=== PATIENT | male | born 1950 | race Hispanic/Latino ===

== ENCOUNTER 2019-02-04 17:01 | Emergency (ER) | payer OTHER ==
--- NOTE | 2019-02-04 18:07 | RAD REPORT ---
EXAM DESCRIPTION: CT - CTHCSPWOC - 02/04/2019 5:54 pm CLINICAL HISTORY: Trauma, head and neck injury. PAIN COMPARISON: Head Brain Wo Cont dated 06/13/2016 TECHNIQUE: Axial 5 mm thick images of the head were obtained. Axial 2 mm thick images of the cervical spine were obtained with sagittal and coronal reconstruction images generated and reviewed. All CT scans are performed using dose optimization technique as appropriate and may include automated exposure control or mA/KV adjustment according to patient size. FINDINGS: CT HEAD WITHOUT CONTRAST: No acute hemorrhage, hydrocephalus or extra-axial collection is identified.Mild generalized brain atr ophy is present with mild periventricular and deep white matter chronic microvascular ischemic change s.No areas of brain edema or midline shift. 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 The paranasal sinuses and mastoids demonstrate mild thickening of both maxillary antra.The paranasal sinuses and mastoids are otherwise clear.The calvarium is intact. CT CERVICAL SPINE WITHOUT CONTRAST: No fracture or subluxation.A left carotid stent is noted.No prevertebral soft tissues swelling is bharat ntified. IMPRESSION: No acute intracranial or cervical spine findings.
--- NOTE | 2019-02-04 18:49 | RAD REPORT ---
EXAM DESCRIPTION: RAD - Thoracic Spine Ap/Lat - 02/04/2019 6:44 pm CLINICAL HISTORY: fall. back pain Radiculopathy COMPARISON: No comparisons FINDINGS: The thoracic spine vertebral body heights and disc spaces are largely maintained. No acute compression fracture. No significant malalignment. Multilevel bridging anterior osteophytes suggesti ve of underlying DISH. IMPRESSION: No acute abnormality suspected.
[2019-02-04] MEDS ORDERED: ACETAMINOPHEN 500 MG TAB ONE (18:53)
--- NOTE | 2019-02-04 19:21 | ER ---
Nurse's Notes [facility] Name: Joey Pringle Age: 68 yrs Sex: Male : 1950 Arrival Date: 02/04/2019 Time: 17:04 Bed 20 Private MD: Diagnosis: fall;head injury;scalp contusion;neck sprain;thoracic back sprain Presentation: 02/04 17:06 Presenting complaint: Patient states: slipped and fell outside, hit the back of his head and has a hematoma; neck pain. Denies LOC. Care prior to arrival: None. Mechanism of Injury: Fall from standing position. Trauma event details: Injury occurred in the [facility], Injury occurred: on a street or highway. Injury occurred: February 04, 2019. 17:06 Method Of Arrival: Ambulatory sv 17:06 Acuity: BELKYS 2 sv 18:43 Transition of care: patient was not received from another setting of care. Onset of aj1 symptoms was February 04, 2019. Risk Assessment: Do you want to hurt yourself or someone else? Patient reports no desire to harm self or others. Initial Sepsis Screen: Does the patient meet any 2 criteria? No. Patient's initial sepsis screen is negative. Does the patient have a suspected source of infection? No. Patient's initial sepsis screen is negative. Trauma Activation: Not Applicable Physician: ED Physician; Name: ; Notified At: ; Arrived At: Physician: General Surgeon; Name: ; Notified At: ; Arrived At: Physician: Radiology; Name: ; Notified At: ; Arrived At: Physician: Respiratory; Name: ; Notified At: ; Arrived At: Physician: Lab; Name: ; Notified At: ; Arrived At: Historical: - Allergies: 17:09 Iodine; sv 17:09 SEAFOOD; sv - Home Meds: 17:09 Plavix 75 mg Oral tab [Active]; Janumet XR 50-1,000 mg Oral TM24 1 tab twice a day sv [Active]; Vytorin 10-20 10-20 mg Oral tab 1 tab once daily [Active]; carbidopa-levodopa 25-100 mg Oral tab 1 tab 3 times per day [Active]; lisinopril 20 mg Oral tab 1 tab once daily [Active]; Humulin 70/30 100 unit/mL (70-30) Sub-Q susp [Active]; 17:10 aspirin 81 mg Oral chew 1 tab once daily [Active]; sv - PMHx: 17:09 Diabetes - IDDM; Hypertension; Parkinsons; sv - Immunization history:: Adult Immunizations up to date. - Social history:: Smoking status: Patient/guardian denies using tobacco. - Immunization history: Last tetanus immunization: unknown. - Ebola Screening: : Patient denies travel to an Ebola-affected area in the 21 days before illness onset. - Family history:: not pertinent. - Hospitalizations: : No recent hospitalization is reported. Screenin:15 Abuse screen: Denies threats or abuse. Denies injuries from another. Tuberculosis aj1 screening: No symptoms or risk factors identified. 18:44 Nutritional screening: No deficits noted. aj1 19:35 Fall Risk Fall in past 12 months (25 points). wh Primary Survey: 17:15 NO uncontrolled hemorrhage observed. A: The patient is alert. Breathing/Chest: aj1 Respiratory pattern: regular, Respiratory effort: spontaneous, unlabored, Breath sounds: clear, bilaterally. Chest inspection: symmetrical rise and fall of the chest. Circulation: Heart tones present. Skin color: pink. Disability Alert. Exposure/Environment: There is no evidence of uncontrolled external bleeding. 19:34 Reassessment Breathing/Chest Respiratory pattern Regular Respiratory effort Spontaneous wh Unlabored Breath sounds Clear. Secondary Survey: 17:15 HEENT: Head Other hematoma noted to back of head. Gastrointestinal: No deficits noted. aj1 : No deficits noted. Musculoskeletal: No deficits noted. Assessment: 17:15 General: Appears in no apparent distress. uncomfortable, Behavior is calm, cooperative, aj1 appropriate for age. Pain: Complains of pain in scalp. Neuro: Level of Consciousness is awake, alert, obeys commands, Oriented to person, place, time, situation, Moves all extremities. Full function Speech is normal, Facial symmetry appears normal, Reports headache. EENT: No signs and/or symptoms were reported regarding the EENT system. Cardiovascular: Heart tones S1 S2 present Patient's skin is warm and dry. Respiratory: Airway is patent Respiratory effort is even, unlabored, Respiratory pattern is regular, symmetrical, Breath sounds are clear bilaterally. GI: No signs and/or symptoms were reported involving the gastrointestinal system. : No signs and/or symptoms were reported regarding the genitourinary system. Derm: Skin is pink, warm \T\ dry. Musculoskeletal: Circulation, motion, and sensation intact. Injury Description: hematoma to back of head. 18:15 Reassessment: Patient appears in no apparent distress at this time. No changes from [facility] previously documented assessment. Patient and/or family updated on plan of care and expected duration. Pain level reassessed. Patient is alert, oriented x 3, equal unlabored respirations, skin warm/dry/pink. 19:34 Reassessment: Patient appears in no apparent distress at this time. No changes from previously documented assessment. Patient and/or family updated on plan of care and expected duration. Pain level reassessed. Patient is alert, oriented x 3, equal unlabored respirations, skin warm/dry/pink. Patient denies pain at this time. Vital Signs: 17:08 BP 149 / 51; Pulse 96; Resp 16; Temp 98.9; Pulse Ox 100% ; Weight 79.38 kg; Height 5 sv ft. 6 in. (167.64 cm); 18:34 BP 125 / 36; Pulse 91; Resp 16; Temp 97.8(TE); Pulse Ox 98% ; mh5 19:34 BP 129 / 57; Pulse 80; Resp 18; Pulse Ox 100% on R/A; wh 17:08 Body Mass Index 28.25 (79.38 kg, 167.64 cm) sv [place] Coma Score: 17:10 Eye Response: spontaneous(4). Verbal Response: oriented(5). Motor Response: obeys sv commands(6). Total: 15. Trauma Score (Adult): 17:10 Eye Response: spontaneous(1); Verbal Response: oriented(1); Motor Response: obeys sv commands(2); Systolic BP: > 89 mm Hg(4); Respiratory Rate: 10 to 29 per min(4); [place] Score: 15; Trauma Score: 12 ED Course: 17:04 Patient arrived in ED. sv 17:07 Triage completed. sv 17:10 Arm band placed on. sv 17:12 Damaris Randle, DILLON is Primary Nurse. aj1 17:12 Santhosh Palmer MD is Attending Physician. wa 17:15 Patient maintains SpO2 saturation greater than 95% on room air. aj1 17:54 CT Head C Spine In Process Unspecified. EDMS 18:36 Patient has correct armband on for positive identification. Bed in low position. Call mh5 light in reach. Side rails up X 1. Adult w/ patient. Pulse ox on. NIBP on. 18:43 No provider procedures requiring assistance completed. aj 18:44 XRAY Thoracic Spine (Ap/lat) In Process Unspecified. EDMS 18:44 Thermoregulation: warm blanket given to patient. aj1 19:36 Patient did not have IV access during this emergency room visit. Administered Medications: 18:59 Drug: Tylenol 1000 mg Route: PO; aj1 19:34 Follow up: Response: No adverse reaction; Pain is decreased Intake: 17:10 PO: 0ml; Total: 0ml. sv Output: 17:10 Urine: 0ml; Total: 0ml. sv Outcome: 19:20 Discharge ordered by . ok 19:35 Patient's length of stay in the Emergency Department was greater than 2 hours. 19:35 Discharged to home ambulatory, with family. 19:35 Condition: stable 19:35 Discharge instructions given to patient, family, Instructed on discharge instructions, follow up and referral plans. POC Cervical Sprain Demonstrated understanding of instructions, follow-up care, POC 19:36 Patient left the ED. Signatures: Dispatcher [employer] EDDamaris Jane RN RN ajPita Crowder RN RN sv Martinez, Maria [facility] Dani Celestin Santhosh Palmer MD MD ok Corrections: (The following items were deleted from the chart) 17:10 17:06 Presenting complaint: Patient states: slipped and fell outside, hit the back of sv his head and has a hematoma; neck pain. sv 17:11 17:06 Acuity: BELKYS 3 sv sv
--- NOTE | 2019-02-04 19:22 | EDPHYS ---
Physician Documentation [facility] Name: Joey Pringle Age: 68 yrs Sex: Male : 1950 Arrival Date: 02/04/2019 Time: 17:04 Bed 20 Private MD: ED Physician Santhosh Palmer HPI: 02/04 19:13 This 68 yrs old Male presents to ER via Ambulatory with complaints of Fall wa Injury. 19:13 Details of fall: The patient fell from an upright position, while walking. Onset: The wa symptoms/episode began/occurred 2 hour(s) ago. Associated injuries: The patient sustained injury to the head, contusion, hematoma, swelling, tenderness. Severity of symptoms: At their worst the symptoms were moderate, in the emergency department the symptoms are unchanged. The patient has not experienced similar symptoms in the past. The patient has not recently seen a physician. states tripped and fell. hit back of head on the ground. denies LOC. pt takes Plavix daily. admits to neck and mid-back pain. Historical: - Allergies: 17:09 Iodine; sv 17:09 SEAFOOD; sv - Home Meds: 17:09 Plavix 75 mg Oral tab [Active]; Janumet XR 50-1,000 mg Oral TM24 1 tab twice a day sv [Active]; Vytorin 10-20 10-20 mg Oral tab 1 tab once daily [Active]; carbidopa-levodopa 25-100 mg Oral tab 1 tab 3 times per day [Active]; lisinopril 20 mg Oral tab 1 tab once daily [Active]; Humulin 70/30 100 unit/mL (70-30) Sub-Q susp [Active]; 17:10 aspirin 81 mg Oral chew 1 tab once daily [Active]; sv - PMHx: 17:09 Diabetes - IDDM; Hypertension; Parkinsons; sv - Immunization history:: Adult Immunizations up to date. - Social history:: Smoking status: Patient/guardian denies using tobacco. - Immunization history: Last tetanus immunization: unknown. - Ebola Screening: : Patient denies travel to an Ebola-affected area in the 21 days before illness onset. - Family history:: not pertinent. - Hospitalizations: : No recent hospitalization is reported. ROS: 19:15 Constitutional: Negative for fever, chills, and weight loss, Eyes: Negative for injury, wa pain, redness, and discharge, ENT: Negative for injury, pain, and discharge, Neck: Negative for injury, pain, and swelling, Cardiovascular: Negative for chest pain, palpitations, and edema, Respiratory: Negative for shortness of breath, cough, wheezing, and pleuritic chest pain, Abdomen/GI: Negative for abdominal pain, nausea, vomiting, diarrhea, and constipation, Back: Negative for injury and pain, : Negative for injury, bleeding, discharge, and swelling, MS/Extremity: Negative for injury and deformity, Neuro: Negative for headache, weakness, numbness, tingling, and seizure, Psych: Negative for depression, anxiety, suicide ideation, homicidal ideation, and hallucinations. 19:15 All other systems are negative. 19:16 Neuro: Negative for altered mental status, dizziness, gait disturbance, headache, loss wa of consciousness, syncope. Exam: 19:16 Constitutional: This is a well developed, well nourished patient who is awake, alert, wa and in no acute distress. 19:16 Constitutional: This is a well developed, well nourished patient who is awake, alert, and in no acute distress. Eyes: Pupils equal round and reactive to light, extra-ocular motions intact. Lids and lashes normal. Conjunctiva and sclera are non-icteric and not injected. Cornea within normal limits. Periorbital areas with no swelling, redness, or edema. Neck: Trachea midline, no thyromegaly or masses palpated, and no cervical lymphadenopathy. Supple, full range of motion without nuchal rigidity, or vertebral point tenderness. No Meningismus. Chest/axilla: Normal chest wall appearance and motion. Nontender with no deformity. No lesions are appreciated. Cardiovascular: Regular rate and rhythm with a normal S1 and S2. No gallops, murmurs, or rubs. Normal PMI, no JVD. No pulse deficits. Respiratory: Lungs have equal breath sounds bilaterally, clear to auscultation and percussion. No rales, rhonchi or wheezes noted. No increased work of breathing, no retractions or nasal flaring. Abdomen/GI: Soft, non-tender, with normal bowel sounds. No distension or tympany. No guarding or rebound. No evidence of tenderness throughout. Back: No spinal tenderness. No costovertebral tenderness. Full range of motion. MS/ Extremity: Pulses equal, no cyanosis. Neurovascular intact. Full, normal range of motion. Neuro: Awake and alert, GCS 15, oriented to person, place, time, and situation. Cranial nerves II-XII grossly intact. Motor strength 5/5 in all extremities. Sensory grossly intact. Cerebellar exam normal. Normal gait. Psych: Awake, alert, with orientation to person, place and time. Behavior, mood, and affect are within normal limits. 19:16 Head/face: Noted is contusion, of the left side of the back of head. 19:17 Skin: injury, contusion(s), that are superficial, of the left side of the back of head. wa 19:17 Neck: C-spine: vertebral tenderness, that is moderate, appreciated at C4, C5 and C6. sc Vital Signs: 17:08 BP 149 / 51; Pulse 96; Resp 16; Temp 98.9; Pulse Ox 100% ; Weight 79.38 kg; Height 5 sv ft. 6 in. (167.64 cm); 18:34 BP 125 / 36; Pulse 91; Resp 16; Temp 97.8(TE); Pulse Ox 98% ; mh5 19:34 BP 129 / 57; Pulse 80; Resp 18; Pulse Ox 100% on R/A; wh 17:08 Body Mass Index 28.25 (79.38 kg, 167.64 cm) sv [place] Coma Score: 17:10 Eye Response: spontaneous(4). Verbal Response: oriented(5). Motor Response: obeys sv commands(6). Total: 15. Trauma Score (Adult): 17:10 Eye Response: spontaneous(1); Verbal Response: oriented(1); Motor Response: obeys sv commands(2); Systolic BP: > 89 mm Hg(4); Respiratory Rate: 10 to 29 per min(4); [place] Score: 15; Trauma Score: 12 MDM: 17:12 Patient medically screened. sc 19:18 Differential diagnosis: closed head injury, contusion, r/o ICH. pt on plavix. Data sc reviewed: vital signs, nurses notes, radiologic studies. Test interpretation: by ED physician or midlevel provider: head and c-spine CT: no acute process. Response to treatment: the patient's symptoms have markedly improved after treatment. 02/04 17:47 Order name: CT Head C Spine; Complete Time: 19:11 [facility] 02/04 18:04 Order name: XRAY Thoracic Spine (Ap/lat); Complete Time: 19:10 sc Administered Medications: 18:59 Drug: Tylenol 1000 mg Route: PO; [facility] 19:34 Follow up: Response: No adverse reaction; Pain is decreased wh Disposition: 02/04/19 19:20 Discharged to Home. Impression: fall, head injury, scalp contusion, neck sprain, thoracic back sprain. - Condition is Stable. - Discharge Instructions: Cervical Sprain, [id number], Head Injury, Adult, [id number]. - Medication Reconciliation Form, Thank You Letter, Antibiotic Education, Prescription Opioid Use form. - Follow up: Private Physician; When: 2 - 3 days. - Problem is new. - Symptoms have improved. - Notes: take tylenol for pain as needed as discussed. return or see your doctor if any worsening concerns Signatures: Dispatcher [employer] EDDamaris Jane RN RN [facility] Pita Vee RN RN Dani Celestin Santhosh Palmer MD MD sc Corrections: (The following items were deleted from the chart) 19:36 19:20 02/04/2019 19:20 Discharged to Home. Impression: fall; head injury; scalp wh contusion; neck sprain; thoracic back sprain. Condition is Stable. Forms are Medication Reconciliation Form, Thank You Letter, Antibiotic Education, Prescription Opioid Use. Follow up: Private Physician; When: 2 - 3 days. Problem is new. Symptoms have improved. wa
[2019-02-04 21:07] VITALS: TEMP 97.8
[2019-02-04 21:08] VITALS: BP 129/57; O2SAT 100
== END 2019-02-04 19:36 | disposition home or self-care (01) ==
LOC: ER 17:01
DX: S00.93XA Contusion of unspecified part of head, initial encounter (principal); S13.9XXA Sprain of joints and ligaments of unspecified parts of neck, initial encounter; S23.3XXA Sprain of ligaments of thoracic spine, initial encounter; I10 Essential (primary) hypertension; E11.9 Type 2 diabetes mellitus without complications; G20 Parkinson's disease; W01.0XXA Fall on same level from slipping, tripping and stumbling without subsequent striking against object, initial encounter; Y93.9 Activity, unspecified; Y92.9 Unspecified place or not applicable; Z91.09 Other allergy status, other than to drugs and biological substances; Z91.013 Allergy to seafood
CPT/HCPCS: 70450; 72070; 72125; 99284

== ENCOUNTER 2019-03-11 22:24 | Inpatient (IN) | payer OTHER ==
--- OUTSIDE RECORDS SUMMARY | 2019-03-11 22:26 | XMS REPORT ---
:1950 [facility] Address [address] [place] [address] Dr. Mccurdy [address] [place] [id number] Care Team Providers Name Role Phone Unavailable Unavailable Unavailable Problems This patient has no known problems. Allergies, Adverse Reactions, Alerts This patient has no known allergies or adverse reactions. Medications This patient has no known medications.
[2019-03-11 23:39] LABS: Absolute Lymphocytes (CBC) 1.4 K/uL (0.7-4.9); Basophils % 1.5 % (0-1.3); Lymphocytes % 13.8 % (15.3-44.8); MPV 8.8 fL (7.6-11.3); RBC Red Blood Cell Count 2.24 M/uL (4.33-5.43)
[2019-03-11 23:40] LABS: Protime INR 1.11
[2019-03-12] LABS: ALT/SGPT 8 U/L (12-78); AST/SGOT 8 U/L (15-37); Albumin 3.1 g/dL (3.4-5.0); Alkaline Phosphatase 79 U/L (45-117); BUN Blood Urea Nitrogen 28 mg/dL (7-18); Bicarbonate 23 mmol/L (21-32); Bilirubin Direct 0.1 mg/dL (0-0.2); Bilirubin Total 0.4 mg/dL (0.2-1.0); Glucose Level 100 mg/dL (74-106); Magnesium 2.3 mg/dL (1.8-2.4); NT PRO-BNP 286 pg/mL (<125); Potassium 4.2 mmol/L (3.5-5.1); Protein, Total 5.8 g/dL (6.4-8.2); Sodium Level 142 mmol/L (136-145); Troponin (Emerg Dept Use Only) < 0.02 ng/mL (0.0-0.045)
--- NOTE | 2019-03-12 00:46 | ER ---
Nurse's Notes [facility] Name: Joey Pringle Age: 68 yrs Sex: Male : 1950 Arrival Date: 03/11/2019 Time: 22:39 Bed 5 Private MD: Diagnosis: Anemia, unspecified;Weakness Presentation: 03/11 22:48 Presenting complaint: EMS states: Called for patient with low BP at home, states lp1 feeling dizzy when standing; reports BP of 85 systolic prior to EMS arrival. Transition of care: patient was not received from another setting of care. 22:48 Method Of Arrival: EMS: [facility] lp1 22:50 Onset of symptoms was March 11, 2019. Risk Assessment: Do you want to hurt yourself lp1 or someone else? Patient reports no desire to harm self or others. Initial Sepsis Screen: Does the patient meet any 2 criteria? No. Patient's initial sepsis screen is negative. Does the patient have a suspected source of infection? No. Patient's initial sepsis screen is negative. Care prior to arrival: Medication(s) given: Normal saline infusion, 1000 mL, IV initiated. 20 GA, in the left forearm, Glucose check: 170. 22:50 Acuity: BELKYS 3 lp1 Historical: - Allergies: 22:52 Iodine; lp1 22:52 SEAFOOD; lp1 - Home Meds: 22:52 aspirin 81 mg Oral chew 1 tab once daily [Active]; Plavix 75 mg Oral tab once daily lp1 [Active]; Janumet XR 50-1,000 mg Oral TM24 1 tab twice a day [Active]; lisinopril 20 mg Oral tab 1 tab once daily [Active]; Vytorin 10-20 10-20 mg Oral tab 1 tab once daily [Active]; Humulin 70/30 100 unit/mL (70-30) Sub-Q susp [Active]; carbidopa-levodopa 25-100 mg Oral tab 1 tab 3 times per day [Active]; lisinopril-hydrochlorothiazide 20-12.5 mg Oral tab 1 tab once daily [Active]; Azilect 1 mg Oral tab 1 tab once daily [Active]; - PMHx: 22:52 Diabetes - IDDM; Hypertension; Parkinsons; CVA; lp1 - PSHx: 22:52 Appendectomy; lp1 - Immunization history:: Adult Immunizations up to date. - Social history:: Smoking status: Patient/guardian denies using tobacco. - Ebola Screening: : No symptoms or risks identified at this time. Screenin:52 Abuse screen: Denies threats or abuse. Denies injuries from another. Nutritional lp1 screening: No deficits noted. Tuberculosis screening: No symptoms or risk factors identified. Fall Risk Total Hamilton Fall Scale indicates High Risk Score (45 or more points). Fall prevention measures have been instituted. Side Rails Up X 2. Assessment: 22:53 General: Appears in no apparent distress. Behavior is calm, cooperative, appropriate lp1 for age. Pain: Denies pain. Neuro: Level of Consciousness is awake, alert, obeys commands, Oriented to person, place, time, situation, tremor to right arm. Reports dizziness, when standing. Cardiovascular: Patient's skin is warm and dry. Respiratory: Respiratory effort is even, unlabored, Breath sounds are clear bilaterally. GI: No signs and/or symptoms were reported involving the gastrointestinal system. : No signs and/or symptoms were reported regarding the genitourinary system. EENT: No signs and/or symptoms were reported regarding the EENT system. Derm: Skin is intact, Skin is dry, Skin is normal. Musculoskeletal: No signs and/or symptoms reported regarding the musculoskeletal system. 03/12 00:00 Reassessment: Assisted patient to bedside to use urinal;. lp1 01:00 Reassessment: Patient appears in no apparent distress at this time. Patient and/or lp1 family updated on plan of care and expected duration. Pain level reassessed. No apparent distress, patient and aware of pending admission. 02:30 Reassessment: Patient appears in no apparent distress at this time. Patient resting, lp1 eyes closed, respirations unlabored. 07:15 Reassessment: Report received from Lexi CARRANZA. PRBCs infusing at this time. attempted to hb call report to floor, receiving nurse unavailable at this time. Vital Signs: 03/11 22:50 BP 127 / 41; Pulse 95; Resp 16; Temp 99.2(O); Pulse Ox 97% on R/A; Weight 74.84 kg; lp1 Height 5 ft. 6 in. (167.64 cm); Pain 0/10; 23:30 BP 113 / 99; Pulse 84; Resp 18; Pulse Ox 100% ; ea 03/12 00:30 BP 116 / 51; Pulse 82; Resp 15; Pulse Ox 100% on R/A; lp1 01:30 BP 113 / 81; Pulse 90; Resp 17; Pulse Ox 100% on R/A; lp1 02:30 BP 120 / 48; Pulse 82; Resp 14; Pulse Ox 100% on R/A; lp1 03:30 BP 114 / 87; Pulse 88; Resp 14; Pulse Ox 99% on R/A; Pain 0/10; lp1 07:15 BP 126 / 56; Pulse 68; Resp 16; Pulse Ox 100% on R/A; hb 03/11 22:50 Body Mass Index 26.63 (74.84 kg, 167.64 cm) lp1 ED Course: 03/11 22:39 Patient arrived in ED. cf2 22:48 Kirk Sierra MD is Attending Physician. tw4 22:48 Lexi Kan RN is Primary Nurse. lp1 22:50 Triage completed. lp1 22:50 Arm band placed on. lp1 22:52 Patient has correct armband on for positive identification. Placed in gown. Bed in low lp1 position. Call light in reach. Side rails up X2. monitoring analyst on. Pulse ox on. NIBP on. 22:53 Maintain EMS IV. Dressing intact. Good blood return noted. Site clean \T\ dry. Gauge \T\ lp 1 site: 20g L FA. 23:10 Initial lab(s) drawn, by me, sent to lab. lp1 23:51 Notified ED physician of a critical lab result(s). Hemoglobin 3.5, Hematocrit 13. lp1 03/12 00:10 T\T\S collected, blood band applied to patient. lp1 00:45 Franki Pacheco MD is Hospitalizing Provider. tw4 01:36 No provider procedures requiring assistance completed. Patient admitted, IV remains in lp1 place. 02:28 Franki Pacheco MD is Hospitalizing Provider. tw4 02:59 Consent for blood and/or blood product transfusion explained by staff, signed by spouse.ea 04:00 Oral contrast reported to be complete. eh 05:02 Inserted saline lock: 20 gauge in right forearm, using aseptic technique. ea Administered Medications: No medications were administered Intake: 03/11 23:30 IV: 1000ml (IV Fluid); Total: 1000ml. lp1 Outcome: 03/12 00:45 Decision to Hospitalize by Provider. tw4 01:36 Condition: stable lp1 01:36 Instructed on the need for admit. 02:29 Decision to Hospitalize by Provider. tw4 03:45 Admitted to ER Hold. Please see [facility] for further documentation. lp1 08:13 Patient left the ED. Signatures: Andre Shrestha Laura, RN RN lp1 Khadijah Perez RN RN Gris Browning RN RN Kirk Watts MD MD tw4 Efrain Castanon cf2 Corrections: (The following items were deleted from the chart) 03/11 22:57 22:50 Care prior to arrival: IV initiated. 20 GA, in the left forearm, Glucose check: lp1 170 lp1
[2019-03-12 01:01] LABS: Anisocytosis 2+; Blood Morphology Comment NOTED (NOT SEEN); Hypochromasia 3+; Ovalocytes 2+; Platelet Estimate ADEQ; Urine White Blood Cell Casts OK
--- NOTE | 2019-03-12 02:30 | EDPHYS ---
Physician Documentation [facility] Name: Joey Pringle Age: 68 yrs Sex: Male : 1950 Arrival Date: 03/11/2019 Time: 22:39 Bed 5 Private MD: ED Physician Kirk Sierra HPI: 03/12 05:06 This 68 yrs old Male presents to ER via EMS with complaints of Weakness. tw4 05:06 The patient presents with dizziness, generalized weakness. Onset: The symptoms/episode tw4 began/occurred 3 day(s) ago. Onset: The symptoms/episode began/occurred and became persistent just prior to arrival. this morning. Context: occurred at home. Modifying factors: The symptoms are alleviated by lying down, the symptoms are aggravated by movement of head, standing up, changing position. Associated signs and symptoms: The patient has no apparent associated signs or symptoms. Patient's baseline: Neuro: alert and fully oriented, Motor: no deficits, Ambulation: walks without assistance. The patient has not experienced similar symptoms in the past. spouse states that patients BP was 85 systolic. Historical: - Allergies: 03/11 22:52 Iodine; lp1 22:52 SEAFOOD; lp1 - Home Meds: 22:52 aspirin 81 mg Oral chew 1 tab once daily [Active]; Plavix 75 mg Oral tab once daily lp1 [Active]; Janumet XR 50-1,000 mg Oral TM24 1 tab twice a day [Active]; lisinopril 20 mg Oral tab 1 tab once daily [Active]; Vytorin 10-20 10-20 mg Oral tab 1 tab once daily [Active]; Humulin 70/30 100 unit/mL (70-30) Sub-Q susp [Active]; carbidopa-levodopa 25-100 mg Oral tab 1 tab 3 times per day [Active]; lisinopril-hydrochlorothiazide 20-12.5 mg Oral tab 1 tab once daily [Active]; Azilect 1 mg Oral tab 1 tab once daily [Active]; - PMHx: 22:52 Diabetes - IDDM; Hypertension; Parkinsons; CVA; lp1 - PSHx: 22:52 Appendectomy; lp1 - Immunization history:: Adult Immunizations up to date. - Social history:: Smoking status: Patient/guardian denies using tobacco. - Ebola Screening: : No symptoms or risks identified at this time. ROS: 03/12 05:06 Constitutional: Negative for fever, chills, and weight loss, Eyes: Negative for injury, tw4 pain, redness, and discharge, Cardiovascular: Negative for chest pain, palpitations, and edema, Respiratory: Negative for shortness of breath, cough, wheezing, and pleuritic chest pain, Abdomen/GI: Negative for abdominal pain, nausea, vomiting, diarrhea, and constipation, Back: Negative for injury and pain, MS/Extremity: Negative for injury and deformity, Skin: Negative for injury, rash, and discoloration. Neuro: Positive for weakness, Negative for altered mental status, dizziness, gait disturbance, headache, hearing loss, loss of consciousness, numbness, seizure activity, speech changes, syncope, near syncope, tingling, tinnitus. Exam: 05:06 Constitutional: This is a well developed, well nourished patient who is awake, alert, tw4 and in no acute distress. Head/Face: Normocephalic, atraumatic. Chest/axilla: Normal chest wall appearance and motion. Nontender with no deformity. No lesions are appreciated. Cardiovascular: Regular rate and rhythm with a normal S1 and S2. No gallops, murmurs, or rubs. Normal PMI, no JVD. No pulse deficits. Respiratory: Lungs have equal breath sounds bilaterally, clear to auscultation and percussion. No rales, rhonchi or wheezes noted. No increased work of breathing, no retractions or nasal flaring. Abdomen/GI: Soft, non-tender, with normal bowel sounds. No distension or tympany. No guarding or rebound. No evidence of tenderness throughout. Back: No spinal tenderness. No costovertebral tenderness. Full range of motion. MS/ Extremity: Pulses equal, no cyanosis. Neurovascular intact. Full, normal range of motion. Neuro: Awake and alert, GCS 15, oriented to person, place, time, and situation. Cranial nerves II-XII grossly intact. Motor strength 5/5 in all extremities. Sensory grossly intact. Cerebellar exam normal. Normal gait. 05:06 Eyes: Periorbital structures: appear normal, Pupils: no acute changes, Extraocular movements: no acute changes, Conjunctiva: pale, bilaterally, Corneas: are normal. Vital Signs: 03/11 22:50 BP 127 / 41; Pulse 95; Resp 16; Temp 99.2(O); Pulse Ox 97% on R/A; Weight 74.84 kg; lp1 Height 5 ft. 6 in. (167.64 cm); Pain 0/10; 23:30 BP 113 / 99; Pulse 84; Resp 18; Pulse Ox 100% ; ea 03/12 00:30 BP 116 / 51; Pulse 82; Resp 15; Pulse Ox 100% on R/A; lp1 01:30 BP 113 / 81; Pulse 90; Resp 17; Pulse Ox 100% on R/A; lp1 02:30 BP 120 / 48; Pulse 82; Resp 14; Pulse Ox 100% on R/A; lp1 03:30 BP 114 / 87; Pulse 88; Resp 14; Pulse Ox 99% on R/A; Pain 0/10; lp1 07:15 BP 126 / 56; Pulse 68; Resp 16; Pulse Ox 100% on R/A; hb 03/11 22:50 Body Mass Index 26.63 (74.84 kg, 167.64 cm) lp1 MDM: 03/11 22:48 Patient medically screened. tw4 03/12 05:06 Differential diagnosis: cardiac arrhythmia, generalized weakness, GI bleed, tw4 hyperventilation, hypovolemia, idiopathic dizziness, sepsis, syncope, TIA, vertigo. Data reviewed: vital signs, nurses notes. Data interpreted: Pulse oximetry: Interpretation: normal. Counseling: I had a detailed discussion with the patient and/or guardian regarding: the historical points, exam findings, and any diagnostic results supporting the discharge/admit diagnosis, lab results. Physician consultation: Franki Pacheco MD regarding admission, to the telemetry unit. patient's condition, and will see patient in ED. ED course: Pt will need transfusion and admission to the inpatient unit. 03/11 22:55 Order name: Basic Metabolic Panel; Complete Time: 00:46 lp1 03/12 00:46 Interpretation: Normal except: CL 114; BUN 28; GFR 58. tw4 03/11 22:55 Order name: CBC with Diff lp1 03/11 22:55 Order name: LFT's; Complete Time: 00:46 lp1 03/12 00:46 Interpretation: Normal except: AST 8; ALT 8; TP 5.8; ALB 3.1. tw4 03/11 22:55 Order name: Magnesium; Complete Time: 00:46 lp1 03/12 00:47 Interpretation: Within normal limits: MG 2.3. tw4 03/11 22:55 Order name: NT PRO-BNP; Complete Time: 00:46 lp1 03/12 00:46 Interpretation: Normal except: NT PRO-BNP 286. tw4 03/11 22:55 Order name: PT-INR; Complete Time: 00:46 lp1 03/12 00:46 Interpretation: Within normal limits: PT 13.1. tw4 03/11 22:55 Order name: Troponin (emerg Dept Use Only); Complete Time: 00:46 lp1 03/12 00:47 Interpretation: Within normal limits: TROPED < 0.02. tw4 03/11 23:51 Order name: CBC Smear Scan EDMS 03/11 23:56 Order name: Type And Screen lp1 03/12 03:19 Order name: ABO/RH no charge EDMS 03/12 03:24 Order name: Packed RBC Leukored EDMS 03/12 03:31 Order name: CBC with Automated Diff EDMS 03/12 03:31 Order name: CBC with Automated Diff EDMS 03/12 03:31 Order name: Comprehensive Metabolic Panel EDMS 03/12 03:31 Order name: Comprehensive Metabolic Panel EDMS 03/12 03:31 Order name: Magnesium EDMS 03/12 03:31 Order name: Magnesium EDMS 03/12 03:31 Order name: Phosphorus EDMS 03/12 03:31 Order name: Phosphorus EDMS 03/12 03:31 Order name: NT PRO-BNP EDMS 03/12 03:31 Order name: NT PRO-BNP EDMS 03/12 03:31 Order name: Protime (+INR) EDMS 03/12 03:31 Order name: Protime (+INR) EDMS 03/12 03:31 Order name: PTT, Activated Partial Thromb EDMS 03/12 03:31 Order name: PTT, Activated Partial Thromb EDMS 03/12 03:33 Order name: Hematocrit EDMS 03/12 03:34 Order name: Hemoglobin EDMS 03/12 03:34 Order name: Abdomen EDMS 03/12 03:46 Order name: Abdomen EDMS 03/12 07:36 Order name: Urinalysis EDMS 03/11 22:55 Order name: EKG; Complete Time: 22:56 lp1 03/11 22:55 Order name: Cardiac monitoring; Complete Time: 22:55 1 03/11 22:55 Order name: EKG - Nurse/Tech; Complete Time: 22:55 1 03/11 22:55 Order name: IV Saline Lock; Complete Time: 22:55 lp1 03/11 22:55 Order name: Labs collected and sent; Complete Time: 22:55 1 03/11 22:55 Order name: O2 Per Protocol; Complete Time: 22:55 1 03/11 22:55 Order name: O2 Sat Monitoring; Complete Time: 22:55 1 03/12 02:11 Order name: Transfuse; Complete Time: 04:19 [facility] 03/12 03:31 Order name: CONS Physician Consult EDMI 03/12 03:31 Order name: NPO EDMS Administered Medications: No medications were administered Disposition: 03/12/19 02:29 Hospitalization ordered by Franki Pacheco for Inpatient Admission. Preliminary diagnosis are Anemia, unspecified, Weakness. - Bed requested for Telemetry/MedSurg (Inpatient). - Status is Inpatient Admission. hb - Condition is Stable. - Problem is new. - Symptoms are unchanged. UTI on Admission? No Signatures: Dispatcher [employer] [facility] Lexi Kan RN RN lp1 Mitzi Silveira RN RN tl1 Khadijah Perez RN RN Kirk Sierra MD MD tw4 Corrections: (The following items were deleted from the chart) 02:28 00:45 Hospitalization Ordered by Franki Pacheco MD for Inpatient Admission. Preliminary ea diagnosis is Anemia, unspecified. Bed requested for Telemetry/MedSurg (Inpatient). Status is Inpatient Admission. Condition is Stable. Problem is new. Symptoms are unchanged. UTI on Admission? No. tw4 02:29 02:29 Hospitalization Ordered by Franki Pacheco MD for Inpatient Admission. Preliminary tw4 diagnosis is Anemia, unspecified. Bed requested for Telemetry/MedSurg (Inpatient). Status is Inpatient Admission. Condition is Stable. Problem is new. Symptoms are unchanged. UTI on Admission? No. tw4 03:38 02:29 03/12/2019 02:29 Hospitalization Ordered by Franki Pacheco MD for Inpatient tl1 Admission. Preliminary diagnosis is Anemia, unspecified; Weakness. Bed requested for Telemetry/MedSurg (Inpatient). Status is Inpatient Admission. Condition is Stable. Problem is new. Symptoms are unchanged. UTI on Admission? No. tw4 06:02 03:38 03/12/2019 02:29 Hospitalization Ordered by Franki Pacheco MD for Inpatient tl1 Admission. Preliminary diagnosis is Anemia, unspecified; Weakness. Bed requested for [facility] ER HOLD. Status is Inpatient Admission. Condition is Stable. Problem is new. Symptoms are unchanged. UTI on Admission? No. tl1 08:13 06:02 03/12/2019 02:29 Hospitalization Ordered by Franki Pacheco MD for Inpatient hb Admission. Preliminary diagnosis is Anemia, unspecified; Weakness. Bed requested for Telemetry/MedSurg (Inpatient). Status is Inpatient Admission. Condition is Stable. Problem is new. Symptoms are unchanged. UTI on Admission? No. tl1
[2019-03-12] MEDS ORDERED: ONDANSETRON 4 MG/2 ML VIAL IV PRN (03:27)
[2019-03-12] MEDS ORDERED: ACETAMINOPHEN 650MG/RECT SUPP RECT PRN (03:27)
[2019-03-12] MEDS ORDERED: ACETAMINOPHEN 500 MG TAB PO PRN (03:27)
[2019-03-12] MEDS ORDERED: NA CHLORIDE 0.9% 500 ML ONE (03:40)
[2019-03-12] MEDS ORDERED: HYDROCORTISONE SUC 100 MG INJ IV ONE (03:40)
[2019-03-12] MEDS ORDERED: DIPHENHYDRAMINE 50 MG/ML VIAL IV ONE (03:40)
[2019-03-12] MEDS: PANTOPRAZOLE INJ 80 MG in NA CHLORIDE 0.9% 250 ML IV SCH ×2 (04:00→16:33)
[2019-03-12 04:18] VITALS: BMI 26.6
[2019-03-12] MEDS ORDERED: HYDROCORTISONE SUC 100 MG INJ ONE (05:04)
[2019-03-12] MEDS ORDERED: DIPHENHYDRAMINE 50 MG/ML VIAL ONE (05:05)
[2019-03-12] MEDS ORDERED: PANTOPRAZOLE 40 MG INJ ONE (06:02)
[2019-03-12] MEDS ORDERED: NA CHLORIDE 0.9% 250 ML ONE ×2 (06:03→15:21)
--- NOTE | 2019-03-12 06:20 | EKG ---
Test Date: 2019-03-11 Test Time: 22:41:33 Metal Wire Technician: ABDELRAHMAN MEASUREMENT RESULTS: Intervals: Rate: 88 ND: 178 QRSD: 82 QT: 366 QTc: 442 Watkins: P: 41 ND: 178 QRS: 23 T: 47 INTERPRETIVE STATEMENTS: Normal sinus rhythm Nonspecific ST abnormality Abnormal ECG Compared to ECG 06/13/2016 18:51:40 ST (T wave) deviation now present Left ventricular hypertrophy no longer present Electronically Signed On 03-12-19 06:19:21 APPLIANCE MECHANIC by Dallin Patino
[2019-03-12 07:35] LABS: Urine Appearance CLEAR; Urine Bilirubin NEGATIVE (NEG); Urine Blood NEGATIVE (NEG); Urine Color YELLOW; Urine Glucose NEGATIVE (NEG); Urine Microscopic Reflex ORDER UMIC; Urine Protein NEGATIVE (NEG); Urine Specific Gravity 1.015 (1.005-1.030); Urine pH 5.5 (5.0-7.0)
[2019-03-12] MEDS ORDERED: PNEUMOCOCCAL VACCINE 0.5 ML IMVAC ONE (08:00)
[2019-03-12 08:20] LABS: Urine Bacteria <20 /HPF (NONE SEEN); Urine Culture Reflex Order REFLEXED; Urine Mucus SLIGHT /HPF (NONE SEEN); Urine RBC <5 /HPF (NONE SEEN)
--- NOTE | 2019-03-12 08:39 | RAD REPORT ---
EXAM DESCRIPTION: CT - Abdomen Pelvis W Contrast - 03/12/2019 6:03 am CLINICAL HISTORY: Abdominal pain COMPARISON: none. TECHNIQUE: Computed axial tomography of the abdomen pelvis was obtained. 100 cc Isovue-300 was admin istered intravenously. Oral contrast was not requested which limits evaluation of bowel. All CT scans are performed using dose optimization technique as appropriate and may include automated exposure control or mA/KV adjustment according to patient size. FINDINGS: A 28 millimeter low to intermediate density lesion is present within the dome of the liver . Spleen, pancreas, adrenal and right kidney appear unremarkable. Small left renal cyst Diverticula stem from the colon. There is mild stranding adjacent to the sigmoid colon within the ant erior upper pelvis to the right of midline. This is compatible with mild diverticulitis Spondylosis involves the lumbar spine resulting spinal stenosis IMPRESSION: Mild sigmoid diverticulitis. A 28 millimeter hepatic lesion does not represent a simple cyst. Ultrasound is recommended for furthe r evaluation
[2019-03-12] MEDS: RASAGILINE MESYLATE 1 MG PO SCH (09:00)
[2019-03-12] MEDS: CARBIDOPA/LEVODOPA 25/100 TAB PO SCH ×4 (09:00→20:36)
[2019-03-12] MEDS: NA CHLORIDE 0.9% 1,000 ML IV SCH (12:31)
[2019-03-12 13:42] LABS: Hematocrit 19.7 % (39.6-49.0)
--- NOTE | 2019-03-12 13:46 | P.HP ---
Certification for Inpatient Patient admitted to: Inpatient With expected LOS: >2 Midnights Patient will require the following post-hospital care: None Practitioner: I am a practitioner with admitting privileges, knowledge of patient current condition, hospital course, and medical plan of care. Services: Services provided to patient in accordance with Admission requirements found in Title 42 Section 412.3 of the Code of Federal Regulations Patient History Date of Service: 03/12/19 Reason for admission: ACUTE BLOOD LOSS ANEMIA History of Present Illness: PATIENT IS A 68-YEAR-OLD GENTLEMAN WHO CAME INTO THE HOSPITAL WITH SEVERE ANEMIA. PATIENT'S HEMOGLOBIN WAS 3.5. PATIENT'S SEES DR. PETERSON IN [place] FOR THE TREATMENT OF HIS PARKINSON'S DISEASE. PATIENT BEEN FEELING WEAK AND SHORT OF BREATH. PATIENT'S BROUGHT HIM IN BECAUSE HIS COLOR WAS DUSKY. PATIENT HAD SOME LIGHTHEADEDNESS WELL. PATIENT WILL NEED FURTHER WORKUP FOR THE ANEMIA. WILL GET GI CONSULTATION WELL. STRICT H&H EVERY 6 HR. TRANSFUSE 2 UNITS PACKED RED BLOOD CELL. REPEAT LABS IN A.M. Allergies iodine Allergy (Unknown, Verified 03/12/19 04:36) swelling, hives Seafood Allergy (Uncoded 06/13/16 23:40) Unknown Home Medications: Rasagiline Mesylate [Azilect] 1 mg PO DAILY 06/14/16 Sitagliptin Phos/Metformin HCl [Janumet 50-1,000 mg Tablet] 1 tab PO BID Clopidogrel Bisulfate [Plavix*] 75 mg PO DAILY #30 tablet 06/15/16 Lisinopril [Prinivil*] 20 mg PO DAILY #30 tab 06/15/16 Aspirin [Cara Chewable] 81 mg PO DAILY 03/12/19 Carbidopa/Levodopa [Carbidopa-Levo 25-250 mg Odt] 1 each PO TID 03/12/19 Ezetimibe/Simvastatin [Ezetimibe-Simvastatin 10-10 mg] 1 each PO DAILY 03/12/19 - Past Medical/Surgical History Has patient received pneumonia vaccine in the past: No Diabetic: Yes -: HTN -: IDDM -: Parkinson's -: CVA -: HLD -: appendectomy - Family History Mother Medical History: Diabetes Father Medical History: Diabetes - Social History Smoking Status: Never smoker Alcohol use: No CD- Drugs: No Caffeine use: Yes Place of Residence: Home Review of Systems 10-point ROS is otherwise unremarkable Physical Examination - Vital Signs Temperature: 99.5 F Blood Pressure: 135/62 Pulse: 75 Respirations: 18 Pulse Ox (%): 96 - Physical Exam General: Alert, In no apparent distress, Oriented x3 HEENT: Atraumatic, PERRLA, Mucous membr. moist/pink, EOMI, Sclerae nonicteric Neck: Supple, 2+ carotid pulse no bruit, No LAD, Without JVD or thyroid abnormality Respiratory: Clear to auscultation bilaterally, Normal air movement Cardiovascular: Regular rate/rhythm, Normal S1 S2, No murmurs Gastrointestinal: Normal bowel sounds, Soft and benign, Non-distended, No tenderness Musculoskeletal: No clubbing, No swelling, No tenderness Integumentary: No rashes Neurological: Normal gait, Normal speech, Normal strength at 5/5 x4 extr, Normal tone, Sensation intact, Cranial nerves 3-12 intact, Normal affect Lymphatics: No axilla or inguinal lymphadenopathy - Studies Laboratory Data (last 24 hrs) 03/12/19 03:32: Hgb Cancelled, Hct Cancelled 03/11/19 23:10: PT 13.1 H, INR 1.11 03/11/19 23:10: WBC 9.9, Hgb 3.5 L*, Hct 13.0 L*, Plt Count 208 03/11/19 23:10: Sodium 142, Potassium 4.2, BUN 28 H, Creatinine 1.23, Glucose 100, Magnesium 2.3, Total Bilirubin 0.4, AST 8 L, ALT 8 L, Alkaline Phosphatase 79 Assessment & Plan - Problems (Diagnosis) (1) Acute blood loss anemia Current Visit: Yes Status: Acute (2) Severe anemia Current Visit: Yes Status: Acute (3) Diverticulitis Current Visit: Yes Status: Acute (4) Liver mass Current Visit: Yes Status: Acute (5) CKD (chronic kidney disease) stage 3, GFR 30-59 ml/min Current Visit: No Status: Chronic (6) Diabetes Current Visit: No Status: Chronic Qualifiers: Diabetes mellitus type: type 2 Diabetes mellitus supervisor long goods insulin use: with supervisor long goods use Diabetes mellitus complication status: without complication Qualified Code(s): E11.9 - Type 2 diabetes mellitus without complications; Z79.4 - truck terminal manager (current) use of insulin (7) Essential hypertension Current Visit: No Status: Chronic - Plan 1. Continue with IV hydration 2. Continue with IV antibiotics 3. Continue with pain control 4. NPO 5. GI consultation; outpatient colonoscopy in 6-12 weeks 6. Serial H&H, and we will monitor CBC, BMP, LFTs and lipase along with electrolytes. 7. Anemia studies 8. PPI 9. GI and DVT prophylaxis Discharge Plan: Home Plan to discharge in: Greater than 2 days - Advance Directives Does patient have a Living Will: No Does patient have a Durable POA for Healthcare: Yes - Code Status/Comfort Care Code Status Assessed: Yes Code Status: Full Code Critical Care: No Time Spent Managing PTS Care (In Minutes): 45
--- NOTE | 2019-03-12 20:28 | RAD REPORT ---
EXAM DESCRIPTION: US - Abdomen Exam Complete - 03/12/2019 8:17 pm CLINICAL HISTORY: Abdominal pain. Liver mass COMPARISON: Abdomen Pelvis W Contrast dated 03/12/2019 FINDINGS: The recently described liver mass on CT could not be well seen by ultrasound assessment. T his is predominately due to its position the in the superior dome region of the liver and prominent r ib shadowing. No biliary dilatation seen. The gallbladder demonstrates no gallstones, pericholecystic fluid or gallbladder wall thickening. Co mmon bile duct is normal in caliber measuring 5 millimeters. Both kidneys are normal in size, shape and echotexture. No hydronephrosis, focal lesion of concern or perinephric fluid. The spleen is normal in size measuring 9 cm. The pancreas and aorta are obscured by bowel gas. The visualized aspects of the IVC are grossly normal. IMPRESSION: The recently CT described liver mass could not be well visualized by ultrasound due to i ts position in the dome region of the liver and rib shadowing. Suggest followup assessment of the tomas er mass with MRI liver protocol. Elsewhere, no acute or aggressive abnormality was detected.
[2019-03-12] MEDS: ATORVASTATIN 10 MG TAB PO SCH (20:35)
[2019-03-12] MEDS ORDERED: NA CHLORIDE 0.9% 100 ML ONE (21:28)
[2019-03-13] MEDS ORDERED: FUROSEMIDE 40 MG/4 ML VIAL IV ONE (03:10)
[2019-03-13] MEDS ORDERED: IPRATROPIUM BROM 0.5MG/2.5ML NEB PRN (03:17)
[2019-03-13] MEDS ORDERED: ALBUTEROL 2.5 MG/3 ML NEB SOL NEB PRN (03:17)
[2019-03-13 04:01] LABS: Absolute Lymphocytes (CBC) 1.2 K/uL (0.7-4.9); Basophils % 0.7 % (0-1.3); Lymphocytes % 8.2 % (15.3-44.8); MPV 10.1 fL (7.6-11.3); RBC Red Blood Cell Count 3.65 M/uL (4.33-5.43)
[2019-03-13 04:04] LABS: Protime INR 1.11
[2019-03-13] MEDS: ALPRAZOLAM 0.25 MG TABLET PO PRN ×2 (04:29→23:59)
[2019-03-13 04:47] LABS: Albumin 3.1 g/dL (3.4-5.0); Bilirubin Total 0.8 mg/dL (0.2-1.0); Ferritin 4.4 ng/mL (26-388); Folic Acid, (Folate) 11.7 ng/mL (3.1-17.5); Magnesium 2.3 mg/dL (1.8-2.4); Phosphorus 2.7 mg/dL (2.5-4.9); Potassium 4.2 mmol/L (3.5-5.1)
--- NOTE | 2019-03-13 07:54 | RAD REPORT ---
EXAM DESCRIPTION: RAD - Chest Single View - 03/13/2019 3:45 am CLINICAL HISTORY: Dyspnea wheezing COMPARISON: June 2016 TECHNIQUE: AP portable chest image was obtained 0340 hour . FINDINGS: The interstitial markings are increased over the comparison even when adjusting for shallo w inspiration. Increased right perihilar opacification is also present. Art size is normal for portab le imaging. Vasculature prominent in the upper lung escoto. Retrocardiac left base assessment is limi joe. No measurable pleural effusion and no pneumothorax. No acute bony abnormality seen. No acute aortic findings suspected. IMPRESSION: Increased interstitial opacification from edema or infiltrate. Focal increased opacification in the right hilum could be a central right lung field pneumonia. Devel oping mass is unlikely but not excluded. Continued follow-up is needed to assure clearing following m edical management.
[2019-03-13] MEDS: PANTOPRAZOLE INJ 80 MG in NA CHLORIDE 0.9% 250 ML IV SCH ×4 (08:00→22:22)
[2019-03-13] MEDS: NA CHLORIDE 0.9% 1,000 ML IV SCH ×2 (08:01→08:02)
[2019-03-13] MEDS: RASAGILINE MESYLATE 1 MG PO SCH (08:03)
[2019-03-13] MEDS: CARBIDOPA/LEVODOPA 25/100 TAB PO SCH ×4 (09:00→22:19)
[2019-03-13] MEDS ORDERED: CYANOCOBALAMIN 1000MCG/ML INJ IM ONE (12:07)
[2019-03-13] MEDS ORDERED: NA CHLORIDE 0.9% 250 ML ONE (16:08)
[2019-03-13] MEDS ORDERED: LIDOCAINE 1% MPF 5 ML VIAL ONE (18:47)
[2019-03-13] MEDS ORDERED: PROPOFOL 200 MG/20 ML VIAL IV ONE (18:47)
[2019-03-13] MEDS ORDERED: NA CHLORIDE 0.9% 1,000 ML ONE (18:54)
--- NOTE | 2019-03-13 19:07 | ENDO RPT ---
[address], [address] EGD PROCEDURE REPORT EXAM DATE: 03/13/2019 PATIENT NAME: Joey Pringle MR#: [id number] BIRTHDATE: 1950 ATTENDING: Santhosh Lemos Dr STATUS: outpatient DENTIST ATTENDANT: Mel Alvares and Pascale Narvaez RN INDICATIONS: The patient is a 68 yr old Male here for an EGD due to iron deficiency anemia PROCEDURE PERFORMED: EGD with biopsy MEDICATIONS: Per Anesthesia. TOPICAL ANESTHETIC: none CONSENT: The patient understands the risks and benefits of the procedure and understands that these risks include, but are not limited to: sedation, allergic reaction, infection, perforation and/or bleeding. Alternative means of evaluation and treatment include, among others: physical exam, x-rays, and/or surgical intervention. The patient elects to proceed with this endoscopic procedure. DESCRIPTION OF PROCEDURE: During intra-op preparation period all mechanical medical equipment was checked for proper function. Hand hygiene and appropriate measures for infection prevention was taken. Procedure, possible complications, and alternatives including but not limited to the possibility of bleeding, perforation, tear, infection, sepsis, need for surgery, need for blood transfusion, and anesthesia related complications were explained to the patient. After the risks, benefits and alternatives of the procedure were thoroughly explained, Informed consent was verified, confirmed and timeout was successfully executed by the treatment team. The patient was placed in the left lateral position. The patient was anesthetized with topical anesthesia. Through the anesthetized oropharyngeal area, the scope was passed without any difficulty. The Pentax EG-[id number] ([id number]) endoscope was introduced through the mouth and advanced to the third portion of the duodenum. Retroflexed views revealed a small hiatal hernia. The gastroscope was then slowly withdrawn and removed. A small hiatal hernia was found Mild Atrophic gastritis was found in the body of the stomach. Multiple biopsies were obtained and sent to pathology. Small bowel biopsies obtained with history of iron deficiency anemia. ADVERSE EVENTS: There were no complications. IMPRESSIONS: 1. Small hiatal hernia 2. Mild atrophic gastritis in the body of the stomach, s/p biopsies 3. Small bowel biopsies obtained with history of iron deficiency anemia RECOMMENDATIONS: 1. await biopsy results 2. acid suppression therapy REPEAT EXAM: Santhosh Lemos Dr eSigned: Santhosh Lemos Dr 03/13/2019 7:06 PM cc: Franki Pacheco CPT CODES: ICD9 CODES: PATIENT NAME: Joey Pringle MR#: [id number]
--- NOTE | 2019-03-13 19:08 | ENDO RPT ---
[address], [address] EGD PROCEDURE REPORT EXAM DATE: 03/13/2019 PATIENT NAME: Joey Pringle MR#: [id number] BIRTHDATE: 1950 ATTENDING: Santhosh Lemos Dr STATUS: outpatient CHEMIST INORGANIC: Mel Alvares and Pascale Narvaez RN INDICATIONS: The patient is a 68 yr old Male here for an EGD due to iron deficiency anemia, hgb 3.5, ferritin 4.4, iron saturation 4.1% PROCEDURE PERFORMED: EGD with biopsy MEDICATIONS: Per Anesthesia. TOPICAL ANESTHETIC: none CONSENT: The patient understands the risks and benefits of the procedure and understands that these risks include, but are not limited to: sedation, allergic reaction, infection, perforation and/or bleeding. Alternative means of evaluation and treatment include, among others: physical exam, x-rays, and/or surgical intervention. The patient elects to proceed with this endoscopic procedure. DESCRIPTION OF PROCEDURE: During intra-op preparation period all mechanical medical equipment was checked for proper function. Hand hygiene and appropriate measures for infection prevention was taken. Procedure, possible complications, and alternatives including but not limited to the possibility of bleeding, perforation, tear, infection, sepsis, need for surgery, need for blood transfusion, and anesthesia related complications were explained to the patient. After the risks, benefits and alternatives of the procedure were thoroughly explained, Informed consent was verified, confirmed and timeout was successfully executed by the treatment team. The patient was placed in the left lateral position. The patient was anesthetized with topical anesthesia. Through the anesthetized oropharyngeal area, the scope was passed without any difficulty. The Pentax EG-[id number] ([id number]) endoscope was introduced through the mouth and advanced to the third portion of the duodenum. Retroflexed views revealed a small hiatal hernia. The gastroscope was then slowly withdrawn and removed. A small hiatal hernia was found Mild Atrophic gastritis was found in the body of the stomach. Multiple biopsies were obtained and sent to pathology. Small bowel biopsies obtained with history of iron deficiency anemia. ADVERSE EVENTS: There were no complications. IMPRESSIONS: 1. Small hiatal hernia 2. Mild atrophic gastritis in the body of the stomach, s/p biopsies 3. Small bowel biopsies obtained with history of iron deficiency anemia RECOMMENDATIONS: 1. await biopsy results 2. acid suppression therapy REPEAT EXAM: Santhosh Lemos Dr eSigned: Santhosh Lemos Dr 03/13/2019 7:08 PM Revised: 03/13/2019 7:08 PM cc: Franki Pacheco CPT CODES: ICD9 CODES: PATIENT NAME: Joey Pringle MR#: [id number]
[2019-03-13] MEDS: ATORVASTATIN 10 MG TAB PO SCH (22:18)
[2019-03-13] MEDS: METOCLOPRAMIDE 10 MG/2mL INJ IV SCH ×2 (22:19→23:59)
[2019-03-13] MEDS: GOLYTELY 4000 ML PO SCH (22:21)
[2019-03-13] MEDS: MAGNESIUM CITRATE 300 ML BOT PO SCH (22:22)
[2019-03-13 22:37] LABS: Hematocrit 32.6 % (39.6-49.0)
--- NOTE | 2019-03-13 22:57 | EKG ---
Test Date: 2019-03-13 Test Time: 04:24:23 Autism Specialist: RT MEASUREMENT RESULTS: Intervals: Rate: 84 VA: 182 QRSD: 86 QT: 368 QTc: 434 [place]: P: 54 VA: 182 QRS: 30 T: 38 INTERPRETIVE STATEMENTS: Normal sinus rhythm Nonspecific ST abnormality Abnormal ECG Compared to ECG 03/11/2019 22:41:33 No significant changes Electronically Signed On 03-13-19 22:55:57 STRETCHING MACHINE OPERATOR by Dallin Patino
[2019-03-14] MEDS: METOCLOPRAMIDE 10 MG/2mL INJ IV SCH (06:34)
[2019-03-14] MEDS: PANTOPRAZOLE INJ 80 MG in NA CHLORIDE 0.9% 250 ML IV SCH ×2 (06:34→17:13)
--- NOTE | 2019-03-14 07:24 | P.PN ---
Subjective Date of Service: 03/13/19 patient is doing much better. Clinically he is improved. EGD today. Repeat hemoglobin later today. Review of Systems 10-point ROS is otherwise unremarkable Physical Examination - Vital Signs Temperature: 98.3 F Blood Pressure: 143/64 Pulse: 82 Respirations: 17 Pulse Ox (%): 93 - Physical Exam General: Alert, In no apparent distress, Oriented x3 Respiratory: Clear to auscultation bilaterally, Normal air movement Cardiovascular: Regular rate/rhythm, Normal S1 S2 Gastrointestinal: Normal bowel sounds, Soft and benign, Non-distended Musculoskeletal: No clubbing, No swelling Assessment & Plan - Problems (Diagnosis) (1) Acute blood loss anemia Current Visit: Yes Status: Acute (2) Severe anemia Current Visit: Yes Status: Acute (3) Diverticulitis Current Visit: Yes Status: Acute (4) Liver mass Current Visit: Yes Status: Acute (5) CKD (chronic kidney disease) stage 3, GFR 30-59 ml/min Current Visit: No Status: Chronic (6) Diabetes Current Visit: No Status: Chronic Qualifiers: Diabetes mellitus type: type 2 Diabetes mellitus half-way insulin use: with meterman use Diabetes mellitus complication status: without complication Qualified Code(s): E11.9 - Type 2 diabetes mellitus without complications; Z79.4 - watermaster (current) use of insulin (7) Essential hypertension Current Visit: No Status: Chronic - Plan 1. Hep-Lock IV 2. Continue with IV antibiotics 3. Continue with pain control 4. NPO 5. GI consultation; EGD today 6. hemoglobin stabilized 7. Anemia studies- monitor iron levels and B12 levels 8. PPI twice daily 9. GI and DVT prophylaxis Discharge Plan: Home Plan to discharge in: Greater than 2 days - Advance Directives Does patient have a Living Will: No Does patient have a Durable POA for Healthcare: Yes - Code Status/Comfort Care Code Status: Full Code Critical Care: No Time Spent Managing PTS Care (In Minutes): 30
[2019-03-14] MEDS: NA CHLORIDE 0.9% 1,000 ML IV SCH ×3 (08:27→22:04)
[2019-03-14] MEDS: RASAGILINE MESYLATE 1 MG PO SCH (08:29)
[2019-03-14] MEDS: CYANOCOBALAMIN 1,000 MCG TAB SL SCH (09:00)
[2019-03-14] MEDS: CARBIDOPA/LEVODOPA 25/100 TAB PO SCH ×5 (09:00→22:06)
--- NOTE | 2019-03-14 13:16 | P.PN ---
Subjective Date of Service: 03/14/19 Chief Complaint: ACUTE BLOOD LOSS ANEMIA Subjective: No new changes, NPO seen , no new c/o -anxious to eat soon -having tremors during interview - denies nay nausea , abdominal pain or vx roselyn for colonosocpy today -s/p EGD yesterday Review of Systems 10-point ROS is otherwise unremarkable Physical Examination - Vital Signs Temperature: 98.6 F Blood Pressure: 137/84 Pulse: 74 Respirations: 17 Pulse Ox (%): 95 - Physical Exam General: Alert, In no apparent distress, Oriented x3 HEENT: Atraumatic, Normocephalic, PERRLA Neck: Supple, 2+ carotid pulse no bruit, JVD not distended Respiratory: Clear to auscultation bilaterally, Normal air movement Cardiovascular: No edema, Regular rate/rhythm, Normal S1 S2 Gastrointestinal: Normal bowel sounds, No tenderness Musculoskeletal: No erythema, No tenderness Integumentary: No rashes, No breakdown Neurological: Normal speech (pin rolling tremors -intermittent ), Normal strength at 5/5 x4 extr, Other - Studies 03/12/19 00:10: ABO/Rh O POSITIVE, Antibody Screen Negative, Crossmatch See Detail Microbiology Data (last 24 hrs): 03/12/19 06:57 Clean Catch Urine [place] Count - Final <10,000 CFU/ML. 03/12/19 06:57 Clean Catch Urine - Final MIXED ROCKY. Medications List Reviewed: Yes Assessment And Plan - Current Problems (Diagnosis) (1) Parkinson disease Current Visit: Yes Status: Acute (2) Acute blood loss anemia Current Visit: Yes Status: Acute (3) CKD (chronic kidney disease) stage 3, GFR 30-59 ml/min Current Visit: No Status: Chronic (4) Diabetes Current Visit: No Status: Chronic Qualifiers: Diabetes mellitus type: type 2 Diabetes mellitus terminal worker insulin use: with terminal worker use Diabetes mellitus complication status: without complication Qualified Code(s): E11.9 - Type 2 diabetes mellitus without complications; Z79.4 - senior care (current) use of insulin (5) Essential hypertension Current Visit: No Status: Chronic Discharge Plan: Home Plan to discharge in: 48 Hours - Code Status/Comfort Care Code Status Assessed: Yes Code Status: Full Code Physician Review Additional Text: # GI bleed- s/p EDG with findings of atrophic gastritis , biopsy specimen obtained -bleeding resolved now -follow plan for colonoscopy this pm - can resume po post procedure -c/w PPI # HTN -controlled # DM -on insulin Ssliding scale , resume home meds whn eating regular diet # Parkinson disease -resume home regime when taking po # Anemia of blood loss -improved from 3.5 on adm to 10.2 now -s/p PRBC but stable now # DVT prop -on sc heparin # full code
[2019-03-14] MEDS: SOD FERRIC GLUC COMPLX/SUCROSE 250 MG in NA CHLORIDE 0.9% 250 ML IV SCH (13:56)
[2019-03-14 13:57] LABS: Absolute Lymphocytes (CBC) 1.2 K/uL (0.7-4.9); Basophils % 0.7 % (0-1.3); Hematocrit 28.2 % (39.6-49.0); Lymphocytes % 9.5 % (15.3-44.8); MPV 9.5 fL (7.6-11.3); RBC Red Blood Cell Count 3.87 M/uL (4.33-5.43)
[2019-03-14 14:33] LABS: Anisocytosis 3+; Blood Morphology Comment NOTED (NOT SEEN); Platelet Estimate ADEQ; Urine White Blood Cell Casts OK
[2019-03-14 14:34] LABS: Hypochromasia 2+; Ovalocytes 1+; Teardrop Cell 1+
[2019-03-14] MEDS ORDERED: PROPOFOL 200 MG/20 ML VIAL IV ONE (17:48)
[2019-03-14] MEDS ORDERED: LIDOCAINE 1% MPF 5 ML VIAL ONE (17:49)
[2019-03-14] MEDS: MAGNESIUM CITRATE 300 ML BOT PO SCH (18:46)
[2019-03-14] MEDS: GOLYTELY 4000 ML PO SCH (18:46)
--- NOTE | 2019-03-14 18:56 | ENDO RPT ---
[address], [address] COLONOSCOPY PROCEDURE REPORT EXAM DATE: 03/14/2019 PATIENT NAME: Joey Pringle MR #: [id number] BIRTHDATE: 1950 ATTENDING: Santhosh Lemos Dr STATUS: inpatient - 7 EYEGLASS LENS CUTTER: Carly Nj RN and Usman Alvares INDICATIONS: The patient is a 68 yr old Male here for a colonoscopy due to iron deficiency anemia PROCEDURE PERFORMED: Colonoscopy with biopsy MEDICATIONS: Per Anesthesia. ESTIMATED BLOOD LOSS: None CONSENT: The patient understands the risks and benefits of the procedure and understands that these risks include, but are not limited to: sedation, allergic reaction, infection, perforation and/or bleeding. Alternative means of evaluation and treatment include, among others: physical exam, x-rays, and/or surgical intervention. The patient elects to proceed with this endoscopic procedure. DESCRIPTION OF PROCEDURE: During intra-op preparation period all mechanical medical equipment was checked for proper function. Hand hygiene and appropriate measures for infection prevention was taken. Procedure, possible complications, alternatives including, but not limited to possibility of bleeding, perforation, tear, infection, sepsis, need for surgery, need for blood transfusion, were explained to the patient. After the risks, benefits and alternatives of the procedure were thoroughly explained, Informed consent was verified, confirmed and timeout was successfully executed by the treatment team. The patient was placed in the left lateral position. A digital rectal exam was performed and revealed an enlarged prostate. After appropriate level of anesthesia, the scope was passed. The EC-[id number] ([id number]) endoscope was introduced through the anus and advanced to the descending colon. The quality of the prep was fair. The instrument was then slowly withdrawn as the colon was fully examined. Scope withdrawal time was 7 minutes. COLON FINDINGS: A circumferential smooth mass was found in the descending colon. Multiple biopsies were performed using cold forceps. A smooth sessile polyp measuring 3 mm in size was found in the rectum. A polypectomy was performed with cold forceps. Small internal hemorrhoids were found. Retroflexed views revealed small hemorrhoids. The scope was then completely withdrawn from the patient and the procedure terminated. ADVERSE EVENTS: There were no complications. IMPRESSIONS: 1. Near obstructing circumferential mass (donut shaped, unable to intubate past) in the descending colon; multiple biopsies were performed using cold forceps 2. 3 mm Sessile polyp was found in the rectum; polypectomy was performed with cold forceps 3. Small internal hemorrhoids RECOMMENDATIONS: 1. await biopsy results 2. barium enema 3. surgery consult RECALL: Return in 1 year(s) for Colonoscopy. Santhosh Lemos Dr eSigned: Santhosh Lemos Dr 03/14/2019 6:56 PM cc: CPT CODES: ICD9 CODES: PATIENT NAME: Joey Pringle MR#: [id number]
[2019-03-14] MEDS: ATORVASTATIN 10 MG TAB PO SCH (22:06)
[2019-03-14] MEDS: CARBIDOPA/LEVODOPA 25/250 TAB PO SCH (22:28)
[2019-03-14] MEDS: ALPRAZOLAM 0.25 MG TABLET PO PRN (22:37)
[2019-03-15] MEDS: PANTOPRAZOLE INJ 80 MG in NA CHLORIDE 0.9% 250 ML IV SCH ×3 (01:36→22:00)
[2019-03-15] MEDS: CARBIDOPA/LEVODOPA 25/250 TAB PO SCH ×3 (05:09→16:55)
[2019-03-15 06:04] LABS: Albumin 2.9 g/dL (3.4-5.0); Bilirubin Total 1.1 mg/dL (0.2-1.0); Carcinoembryonic Antigen 8.8 ng/mL (0-5.0); Potassium 3.6 mmol/L (3.5-5.1)
[2019-03-15] MEDS: SOD FERRIC GLUC COMPLX/SUCROSE 250 MG in NA CHLORIDE 0.9% 250 ML IV SCH (08:51)
[2019-03-15] MEDS: RASAGILINE MESYLATE 1 MG PO SCH (08:52)
[2019-03-15] MEDS: CYANOCOBALAMIN 1,000 MCG TAB SL SCH (08:52)
[2019-03-15] MEDS ORDERED: POTASSIUM CL SA 10 MEQ TAB PO ONE (09:00)
--- NOTE | 2019-03-15 09:35 | P.PN ---
Subjective Date of Service: 03/15/19 Chief Complaint: ACUTE BLOOD LOSS ANEMIA Subjective: No new changes seen , worried about his new colon mass - denies any more blood per rectum , had a bowel movt yesterday with borwn stool - feel fine today , tolerating po well Review of Systems 10-point ROS is otherwise unremarkable Physical Examination - Vital Signs Temperature: 97.0 F Blood Pressure: 171/77 Pulse: 70 Respirations: 18 Pulse Ox (%): 93 - Physical Exam General: Alert, In no apparent distress, Oriented x3 HEENT: Atraumatic, Normocephalic, PERRLA Neck: Supple, 2+ carotid pulse no bruit Respiratory: Clear to auscultation bilaterally, Normal air movement Cardiovascular: No edema, Normal pulses, Regular rate/rhythm, Normal S1 S2 Gastrointestinal: Normal bowel sounds, Soft and benign, Non-distended Neurological: Normal speech, Normal tone, Other (tremors +) - Studies Laboratory Last Values WBC 12.6 K/uL (4.3-10.9) H 03/14/19 13:32 RBC 3.87 M/uL (4.33-5.43) L 03/14/19 13:32 Hgb 8.7 g/dL (13.6-17.9) L 03/15/19 05:27 Hct 28.2 % (39.6-49.0) L 03/14/19 13:32 MCV 72.9 fL (80-100) L 03/14/19 13:32 MCH 22.8 pg (27.0-35.0) L 03/14/19 13:32 MCHC 31.3 g/dL (32.0-36.0) L 03/14/19 13:32 RDW 30.2 % (12.1-15.2) H 03/14/19 13:32 Plt Count 179 K/uL (152-406) 03/14/19 13:32 MPV 9.5 fL (7.6-11.3) 03/14/19 13:32 Neutrophils % 82.0 % (41.7-73.7) H 03/14/19 13:32 Lymphocytes % 9.5 % (15.3-44.8) L 03/14/19 13:32 Monocytes % 7.1 % (3.3-12.3) 03/14/19 13:32 Eosinophils % 0.7 % (0-4.4) 03/14/19 13:32 Basophils % 0.7 % (0-1.3) 03/14/19 13:32 Absolute Neutrophils 10.3 K/uL (1.8-8.0) H 03/14/19 13:32 Absolute Lymphocytes 1.2 K/uL (0.7-4.9) 03/14/19 13:32 Absolute Monocytes 0.9 K/uL (0.1-1.3) 03/14/19 13:32 Absolute Eosinophils 0.1 K/uL (0-0.5) 03/14/19 13:32 Absolute Basophils 0.1 K/uL (0-0.5) 03/14/19 13:32 Hypochromasia 2+ 03/14/19 13:32 Anisocytosis 3+ 03/14/19 13:32 Microcytosis 1+ 03/14/19 13:32 Tear Drop Cells 1+ 03/14/19 13:32 Ovalocytes 1+ 03/14/19 13:32 Morphology Comment Noted (NOT SEEN) 03/14/19 13:32 Absolute Retic 0.09 M/uL (0.02-0.11) 03/13/19 03:39 Percent Retic 2.39 % (0.4-2.05) H 03/13/19 03:39 PT 13.1 SECONDS (9.5-12.5) H 03/13/19 03:39 INR 1.11 03/13/19 03:39 APTT 27.4 SECONDS (24.3-36.9) 03/13/19 03:39 Sodium 140 mmol/L (136-145) 03/15/19 05:27 Potassium 3.6 mmol/L (3.5-5.1) 03/15/19 05:27 Chloride 112 mmol/L (98-107) H 03/15/19 05:27 Carbon Dioxide 22 mmol/L (21-32) 03/15/19 05:27 BUN 10 mg/dL (7-18) 03/15/19 05:27 Creatinine 0.89 mg/dL (0.55-1.3) 03/15/19 05:27 Estimated GFR 85 mL/min (=/>90) L 03/15/19 05:27 Glucose 75 mg/dL (74-106) 03/15/19 05:27 POC Glucose 92 mg/dl (65-120) 03/14/19 16:18 Calcium 7.8 mg/dL (8.5-10.1) L 03/15/19 05:27 Phosphorus 2.7 mg/dL (2.5-4.9) 03/13/19 03:39 Magnesium 2.3 mg/dL (1.8-2.4) 03/13/19 03:39 Iron 16.0 ug/dL (65-175) L 03/13/19 03:39 TIBC 392 ug/dL (250-460) 03/13/19 03:39 Transferrin 280 mg/dL (200-360) 03/13/19 03:39 Transferrin % Sat 4.1 % (20.0-50.0) L 03/13/19 03:39 Ferritin 4.4 ng/mL (26-388) L 03/13/19 03:39 Total Bilirubin 1.1 mg/dL (0.2-1.0) H 03/15/19 05:27 Direct Bilirubin 0.1 mg/dL (0-0.2) 03/11/19 23:10 AST 15 U/L (15-37) 03/15/19 05:27 ALT 7 U/L (12-78) L 03/15/19 05:27 Alkaline Phosphatase 69 U/L (45-117) 03/15/19 05:27 Lactate Dehydrogenase 154 U/L (87-241) 03/13/19 03:39 Rapid Troponin I < 0.02 ng/mL (0.0-0.045) 03/11/19 23:10 NT-Pro-B Natriuret Pep 614 pg/mL (<125) H 03/13/19 03:39 Serum Total Protein 6.0 g/dL (6.4-8.2) L 03/15/19 05:27 Albumin 2.9 g/dL (3.4-5.0) L 03/15/19 05:27 Globulin 3.1 g/dL (2.3-3.5) 03/15/19 05:27 Albumin/Globulin Ratio 0.9 (1.1-1.8) L 03/15/19 05:27 Carcinoembryonic Ag 8.8 ng/mL (0-5.0) H 03/15/19 05:27 Vitamin B12 238 pg/mL (193-986) 03/13/19 03:39 Serum Folate 11.7 ng/mL (3.1-17.5) 03/13/19 03:39 Urine Color Yellow 03/12/19 06:57 Urine Appearance Clear 03/12/19 06:57 Urine pH 5.5 (5.0-7.0) 03/12/19 06:57 Ur Specific [place] 1.015 (1.005-1.030) 03/12/19 06:57 Urine Ketones Negative (NEG) 03/12/19 06:57 Urine Blood Negative (NEG) 03/12/19 06:57 Urine Nitrite Negative (NEG) 03/12/19 06:57 Urine Bilirubin Negative (NEG) 03/12/19 06:57 Urine Urobilinogen 1.0 mg/dL (0.2-1.0) 03/12/19 06:57 Ur Leukocyte Esterase Trace (NEG) H 03/12/19 06:57 Urine RBC <5 /HPF (NONE SEEN) 03/12/19 06:57 Urine WBC 5-10 /HPF (<5) H 03/12/19 06:57 Ur Squamous Epith Cells <5 /HPF (NONE SEEN) 03/12/19 06:57 Urine Bacteria <20 /HPF (NONE SEEN) 03/12/19 06:57 Urine Mucus Slight /HPF (NONE SEEN) 03/12/19 06:57 Urine Culture Reflexed Reflexed 03/12/19 06:57 Urine Glucose Negative (NEG) 03/12/19 06:57 Urine Total Protein Negative (NEG) 03/12/19 06:57 ABO/Rh O POSITIVE 03/12/19 00:26 Antibody Screen Negative 03/12/19 00:10 Crossmatch See Detail 03/13/19 Unknown Microbiology Data (last 24 hrs): 03/12/19 06:57 Clean Catch Urine [place] Count - Final <10,000 CFU/ML. 03/12/19 06:57 Clean Catch Urine - Final MIXED ROCKY. Medications List Reviewed: Yes Assessment & Plan - Problems (Diagnosis) (1) Parkinson disease Current Visit: Yes Status: Acute (2) Acute blood loss anemia Current Visit: Yes Status: Acute (3) CKD (chronic kidney disease) stage 3, GFR 30-59 ml/min Current Visit: No Status: Chronic (4) Diabetes Current Visit: No Status: Chronic Qualifiers: Diabetes mellitus type: type 2 Diabetes mellitus prison insulin use: with prison use Diabetes mellitus complication status: without complication Qualified Code(s): E11.9 - Type 2 diabetes mellitus without complications; Z79.4 - long term care social worker (current) use of insulin (5) Essential hypertension Current Visit: No Status: Chronic (6) Mass of colon Current Visit: Yes Status: Acute (7) Atrophic gastritis with hemorrhage Current Visit: Yes Status: Acute Physician Review Additional Text: # GI bleed-with atrophic gastritis and new near obstructing sigmoid colon mass - h/h stable at 8.7 -still continue q12h h/h -s/p prior PRBC /6 - s/p EDG with findings of atrophic gastritis , biopsy specimen obtained -bleeding resolved now -follow plan for colonoscopy this pm - can resume po post procedure -c/w PPI # Colon mass - follow biopsy result -follow surgery consult # HTN -controlled # DM -on insulin Ssliding scale , resume home meds whn eating regular diet # Parkinson disease -c/w sinemet # Anemia of blood loss -improved from 3.5 on adm to 8.7 now # DVT prop -on sc heparin # full code patient and at bedside d/w
[2019-03-15] MEDS: lisinopriL 20 MG TAB PO SCH (10:48)
[2019-03-15 13:34] LABS: Absolute Lymphocytes (CBC) 0.9 K/uL (0.7-4.9); Basophils % 0.9 % (0-1.3); Hematocrit 30.4 % (39.6-49.0); RBC Red Blood Cell Count 4.16 M/uL (4.33-5.43)
[2019-03-15] MEDS: GOLYTELY 4000 ML PO SCH (18:42)
[2019-03-15] MEDS: MAGNESIUM CITRATE 300 ML BOT PO SCH (18:42)
--- NOTE | 2019-03-15 19:32 | CON ---
Date of Consultation: 03/15/2019 Brief History Of Present Illness: Patient is a 68-year-old gentleman who came to hospital with severe anemia, his hemoglobin is 3.5. He has seen Dr. López in [place] for the treatment of his Parkinson disease, which is pre-existing. He has a feeling weak and short of breath and has increasing constipation over the past several months. His brought him to the hospital because he was dusky in appearance and had some lightheadedness, dizziness, and was feeling very weak and some fatigued. Past Medical History: Significant for hypertension, diabetes, Parkinson's, CVA , hyperlipidemia. Past Surgical History: Appendectomy. Allergies: IODINE AND SEAFOOD. Home Medications: Include , Plavix, Prinivil, Cara aspirin, carbidopa/levodopa , simvastatin combination. Social History: He denies smoking, alcohol, or recreational drug use. Family History: Father and mother both had diabetes. Review of Systems: A 10-point review of systems other than HPI, denies. Physical Examination: Vital Signs: At the time of examination his vital signs were a BMI of 25.8. His blood pressure 171/77, pulse of 78, respiratory rate 18, temperature 97.0. General: He is awake, alert, oriented. Psychiatric: Appropriate. Conversive. HEENT: Normocephalic. Sclerae anicteric. Mucous membranes moist. Oropharynx clear. Neck: Supple. No JVD. Chest: Normal expansion and excursion Cardiovascular: Regular rate and rhythm. Pulmonary: Clear to auscultation bilaterally. Abdomen: Soft, nontender, nondistended. Extremities: No clubbing, cyanosis, or edema. Neurologic: He does have a tremor on neurologic exam and has hemiparesis. Laboratory Data: Revealed a white blood count 12.6, hemoglobin is 8.8/ hematocrit of 28.2, his platelet count is 179, neutrophils 82%. His sodium is 140, potassium 3.6, chloride 112, carbon dioxide 22, BUN 10, creatinine 0.8, glucose is 75. His total bilirubin is 1.1, AST is 15, ALT is 7, alkaline phosphatase 69. His CEA and AFP were checked. His CEA is 8.8, AFP is currently pending. His hemoglobin on admission was 3.5, however, he had an endoscopy with Dr. Lemos yesterday including upper and lower GI endoscopy. His colonoscopy revealed a circumferential mass suspicious for cancer in the descending colon. Biopsies were taken and are currently pending. He had a CT scan of the abdomen and pelvis as well which showed a mild sigmoid diverticulitis, 28 mm hepatic lesion which does not represent a simple cyst. He also had an ultrasound of this, which was officially read as recent CT mass could not be visualized due to its position of the dome and liver, suggested MRI liver protocol. Assessment And Plan: This is a 68-year-old male with signs and symptoms consistent and concerning for colon cancer with possible metastatic lesion to the liver. I recommend follow up on pathology. If this is in deed cancer will need its stage and will plan treatment based on the above stated possible diagnosis it seems like the patient has colon cancer. I will follow along with you for the workup and will decide a plan after we get a pathologic diagnosis. JAY/VICENTA Voice ID: [id number] Report ID: [id number] RENNY
--- NOTE | 2019-03-15 20:00 | P.PN ---
Subjective Date of Service: 03/15/19 Chief Complaint: ACUTE BLOOD LOSS ANEMIA, FRANK Subjective: No new changes (Sitting in chair eating meal with at bedside. Surgery has seen patient, awaiting pathology for descending colon mass.) Review of Systems 10-point ROS is otherwise unremarkable General: Weakness Physical Examination - Vital Signs Temperature: 97.5 F Blood Pressure: 163/71 Pulse: 55 Respirations: 17 Pulse Ox (%): 97 - Physical Exam General: Alert, In no apparent distress, Oriented x3, Cooperative HEENT: Atraumatic, Normocephalic, PERRLA, EOMI Neck: Supple Respiratory: Normal air movement Cardiovascular: Normal pulses Gastrointestinal: Soft and benign, No tenderness, No rebound, No guarding Neurological: Normal speech - Studies Medications List Reviewed: Yes Assessment And Plan - Current Problems (Diagnosis) (1) Anemia, iron deficiency Current Visit: Yes Status: Acute (2) Mass of colon Current Visit: Yes Status: Acute (3) Parkinson disease Current Visit: Yes Status: Acute (4) CKD (chronic kidney disease) stage 3, GFR 30-59 ml/min Current Visit: No Status: Chronic (5) Diabetes Current Visit: No Status: Chronic Qualifiers: Diabetes mellitus type: type 2 Diabetes mellitus intermediate manager insulin use: with usp use Diabetes mellitus complication status: without complication Qualified Code(s): E11.9 - Type 2 diabetes mellitus without complications; Z79.4 - senior care (current) use of insulin (6) Essential hypertension Current Visit: No Status: Chronic - Plan REC: 1) await pathology 2) surgery consulted 3) await CEA level 4) clear liquid diet Physician Review Additional Text: # GI bleed-with atrophic gastritis and new near obstructing sigmoid colon mass - h/h stable at 8.7 -still continue q12h h/h -s/p prior PRBC /6 - s/p EDG with findings of atrophic gastritis , biopsy specimen obtained -bleeding resolved now -follow plan for colonoscopy this pm - can resume po post procedure -c/w PPI # Colon mass - follow biopsy result -follow surgery consult # HTN -controlled # DM -on insulin Ssliding scale , resume home meds whn eating regular diet # Parkinson disease -c/w sinemet # Anemia of blood loss -improved from 3.5 on adm to 8.7 now # DVT prop -on sc heparin # full code patient and at bedside d/w
[2019-03-15] MEDS: METFORMIN HCL PO SCH (21:00)
[2019-03-15] MEDS: SITAGLIPTIN PHOS PO SCH (21:00)
[2019-03-15] MEDS: ATORVASTATIN 10 MG TAB PO SCH (21:48)
[2019-03-16] MEDS: PANTOPRAZOLE INJ 80 MG in NA CHLORIDE 0.9% 250 ML IV SCH ×3 (04:21→18:27)
[2019-03-16 05:07] LABS: BUN Blood Urea Nitrogen 8 mg/dL (7-18); Bicarbonate 22 mmol/L (21-32); Glucose Level 126 mg/dL (74-106); Potassium 3.9 mmol/L (3.5-5.1); Sodium Level 140 mmol/L (136-145)
[2019-03-16] MEDS: lisinopriL 20 MG TAB PO SCH (08:34)
[2019-03-16] MEDS: CARBIDOPA/LEVODOPA 25/250 TAB PO SCH ×4 (08:35→20:31)
[2019-03-16] MEDS: CYANOCOBALAMIN 1,000 MCG TAB SL SCH (08:35)
[2019-03-16] MEDS: RASAGILINE MESYLATE 1 MG PO SCH (08:36)
[2019-03-16] MEDS: METFORMIN HCL PO SCH ×2 (08:36→20:31)
[2019-03-16] MEDS: SITAGLIPTIN PHOS PO SCH ×2 (08:36→20:31)
[2019-03-16] MEDS ORDERED: POTASSIUM CL SA 10 MEQ TAB PO ONE (09:00)
--- NOTE | 2019-03-16 10:17 | P.PN ---
Subjective Date of Service: 03/16/19 Chief Complaint: ACUTE BLOOD LOSS ANEMIA, FRANK Subjective: No new changes, Tolerating diet (no new issues , anxious to go home today) seen , worried about his new colon mass - denies any more blood per rectum , had a bowel movt yesterday with borwn stool - feel fine today , tolerating po well Review of Systems 10-point ROS is otherwise unremarkable Physical Examination - Vital Signs Temperature: 98.8 F Blood Pressure: 167/74 Pulse: 63 Respirations: 18 Pulse Ox (%): 93 - Physical Exam General: Alert, In no apparent distress, Oriented x3 HEENT: Atraumatic, Normocephalic, PERRLA Respiratory: Clear to auscultation bilaterally, Normal air movement Cardiovascular: Normal pulses, Regular rate/rhythm, Normal S1 S2 Gastrointestinal: Normal bowel sounds, No tenderness Neurological: Other (tremors) - Studies Laboratory Last Values WBC 11.6 K/uL (4.3-10.9) H 03/15/19 13:19 RBC 4.16 M/uL (4.33-5.43) L 03/15/19 13:19 Hgb 9.6 g/dL (13.6-17.9) L 03/15/19 13:19 Hct 30.4 % (39.6-49.0) L 03/15/19 13:19 MCV 73.1 fL (80-100) L 03/15/19 13:19 MCH 23.1 pg (27.0-35.0) L 03/15/19 13:19 MCHC 31.6 g/dL (32.0-36.0) L 03/15/19 13:19 RDW 31.0 % (12.1-15.2) H 03/15/19 13:19 Plt Count 169 K/uL (152-406) 03/15/19 13:19 MPV 9.0 fL (7.6-11.3) 03/15/19 13:19 Neutrophils % 83.0 % (41.7-73.7) H 03/15/19 13:19 Lymphocytes % 8.0 % (15.3-44.8) L 03/15/19 13:19 Monocytes % 5.5 % (3.3-12.3) 03/15/19 13:19 Eosinophils % 2.6 % (0-4.4) 03/15/19 13:19 Basophils % 0.9 % (0-1.3) 03/15/19 13:19 Absolute Neutrophils 9.6 K/uL (1.8-8.0) H 03/15/19 13:19 Absolute Lymphocytes 0.9 K/uL (0.7-4.9) 03/15/19 13:19 Absolute Monocytes 0.6 K/uL (0.1-1.3) 03/15/19 13:19 Absolute Eosinophils 0.3 K/uL (0-0.5) 03/15/19 13:19 Absolute Basophils 0.1 K/uL (0-0.5) 03/15/19 13:19 Hypochromasia 2+ 03/14/19 13:32 Anisocytosis 3+ 03/14/19 13:32 Microcytosis 1+ 03/14/19 13:32 Tear Drop Cells 1+ 03/14/19 13:32 Ovalocytes 1+ 03/14/19 13:32 Morphology Comment Noted (NOT SEEN) 03/14/19 13:32 Absolute Retic 0.09 M/uL (0.02-0.11) 03/13/19 03:39 Percent Retic 2.39 % (0.4-2.05) H 03/13/19 03:39 PT 13.1 SECONDS (9.5-12.5) H 03/13/19 03:39 INR 1.11 03/13/19 03:39 APTT 27.4 SECONDS (24.3-36.9) 03/13/19 03:39 Sodium 140 mmol/L (136-145) 03/16/19 04:22 Potassium 3.9 mmol/L (3.5-5.1) 03/16/19 04:22 Chloride 111 mmol/L (98-107) H 03/16/19 04:22 Carbon Dioxide 22 mmol/L (21-32) 03/16/19 04:22 BUN 8 mg/dL (7-18) 03/16/19 04:22 Creatinine 0.84 mg/dL (0.55-1.3) 03/16/19 04:22 Estimated GFR > 90 mL/min (=/>90) 03/16/19 04:22 Glucose 126 mg/dL (74-106) H 03/16/19 04:22 POC Glucose 114 mg/dl (65-120) 03/16/19 07:28 Calcium 8.1 mg/dL (8.5-10.1) L 03/16/19 04:22 Phosphorus 2.7 mg/dL (2.5-4.9) 03/13/19 03:39 Magnesium 2.3 mg/dL (1.8-2.4) 03/13/19 03:39 Iron 16.0 ug/dL (65-175) L 03/13/19 03:39 TIBC 392 ug/dL (250-460) 03/13/19 03:39 Transferrin 280 mg/dL (200-360) 03/13/19 03:39 Transferrin % Sat 4.1 % (20.0-50.0) L 03/13/19 03:39 Ferritin 4.4 ng/mL (26-388) L 03/13/19 03:39 Total Bilirubin 1.1 mg/dL (0.2-1.0) H 03/15/19 05:27 Direct Bilirubin 0.1 mg/dL (0-0.2) 03/11/19 23:10 AST 15 U/L (15-37) 03/15/19 05:27 ALT 7 U/L (12-78) L 03/15/19 05:27 Alkaline Phosphatase 69 U/L (45-117) 03/15/19 05:27 Lactate Dehydrogenase 154 U/L (87-241) 03/13/19 03:39 Rapid Troponin I < 0.02 ng/mL (0.0-0.045) 03/11/19 23:10 NT-Pro-B Natriuret Pep 614 pg/mL (<125) H 03/13/19 03:39 Serum Total Protein 6.0 g/dL (6.4-8.2) L 03/15/19 05:27 Albumin 2.9 g/dL (3.4-5.0) L 03/15/19 05:27 Globulin 3.1 g/dL (2.3-3.5) 03/15/19 05:27 Albumin/Globulin Ratio 0.9 (1.1-1.8) L 03/15/19 05:27 Carcinoembryonic Ag 8.8 ng/mL (0-5.0) H 03/15/19 05:27 Vitamin B12 238 pg/mL (193-986) 03/13/19 03:39 Serum Folate 11.7 ng/mL (3.1-17.5) 03/13/19 03:39 Urine Color Yellow 03/12/19 06:57 Urine Appearance Clear 03/12/19 06:57 Urine pH 5.5 (5.0-7.0) 03/12/19 06:57 Ur Specific [place] 1.015 (1.005-1.030) 03/12/19 06:57 Urine Ketones Negative (NEG) 03/12/19 06:57 Urine Blood Negative (NEG) 03/12/19 06:57 Urine Nitrite Negative (NEG) 03/12/19 06:57 Urine Bilirubin Negative (NEG) 03/12/19 06:57 Urine Urobilinogen 1.0 mg/dL (0.2-1.0) 03/12/19 06:57 Ur Leukocyte Esterase Trace (NEG) H 03/12/19 06:57 Urine RBC <5 /HPF (NONE SEEN) 03/12/19 06:57 Urine WBC 5-10 /HPF (<5) H 03/12/19 06:57 Ur Squamous Epith Cells <5 /HPF (NONE SEEN) 03/12/19 06:57 Urine Bacteria <20 /HPF (NONE SEEN) 03/12/19 06:57 Urine Mucus Slight /HPF (NONE SEEN) 03/12/19 06:57 Urine Culture Reflexed Reflexed 03/12/19 06:57 Urine Glucose Negative (NEG) 03/12/19 06:57 Urine Total Protein Negative (NEG) 03/12/19 06:57 ABO/Rh O POSITIVE 03/12/19 00:26 Antibody Screen Negative 03/12/19 00:10 Crossmatch See Detail 03/13/19 Unknown Medications List Reviewed: Yes Assessment & Plan - Problems (Diagnosis) (1) Parkinson disease Current Visit: Yes Status: Acute (2) Acute blood loss anemia Current Visit: Yes Status: Acute (3) CKD (chronic kidney disease) stage 3, GFR 30-59 ml/min Current Visit: No Status: Chronic (4) Diabetes Current Visit: No Status: Chronic Qualifiers: Diabetes mellitus type: type 2 Diabetes mellitus intermediate accountant insulin use: with half-way use Diabetes mellitus complication status: without complication Qualified Code(s): E11.9 - Type 2 diabetes mellitus without complications; Z79.4 - [facility] (current) use of insulin (5) Essential hypertension Current Visit: No Status: Chronic (6) Mass of colon Current Visit: Yes Status: Acute (7) Atrophic gastritis with hemorrhage Current Visit: Yes Status: Acute Discharge Plan: Home - Code Status/Comfort Care Code Status Assessed: Yes Code Status: Full Code Physician Review Additional Text: # GI bleed-resolved -03/15 - s/p atrophic gastritis and new near obstructing sigmoid colon mass on EGD AND COLO -hepatic lesion on CT abdomen noted - h/h stable at 8.7 -still continue q12h h/h -s/p prior PRBC 03/14 - s/p EDG with findings of atrophic gastritis , biopsy specimen obtained -bleeding resolved now -follow plan for colonoscopy this pm - can resume po post procedure -c/w PPI # Colon mass - follow biopsy result -follow surgery consult # HTN -controlled # DM -on insulin # Parkinson disease -c/w sinemet # Anemia of blood loss -improved to 9.4 now , h/h still improving after initial 3 unit PRBC - follow repeat today , if still above 9 , can dc home and follow with GI in 1 week along with surgery if positive biopsy result # DVT prop -on sc heparin # full code
[2019-03-16] MEDS: SOD FERRIC GLUC COMPLX/SUCROSE 250 MG in NA CHLORIDE 0.9% 250 ML IV SCH (10:19)
--- NOTE | 2019-03-16 10:27 | P.DS ---
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 Diabetes mellitus complication status: without complication Qualified Code(s): E11.9 - Type 2 diabetes mellitus without complications; Z79.4 - half-way (current) use of insulin (5) Essential hypertension Current Visit: No Status: Chronic (6) Mass of colon Current Visit: Yes Status: Acute (7) Atrophic gastritis with hemorrhage Current Visit: Yes Status: Acute Brief History of Present Illness: # patient admitted for pale appearance and noted with h/h of 3.4 Hospital Course: GI bleed-resolved -s/p EGD with findings of atrophic gastritis and new near obstructing sigmoid colon mass on EGD AND COLO -hepatic lesion on CT abdomen noted . His hemoglobin improved with 3 unit PRBC from 3.5 to 8.8 and continue to spontaneously rise to 9.4 now . He was evaluated by surgery also . lesion in liver was felt to be due to possible metastases. His biopsy of his sigmoid mass is pending as well as CEA levels . he will follow with GI in 1 week for results -His aspirin and plavix were both held # HTN -controlled # DM -on insulin # Parkinson disease -c/w Sinemet # Anemia of blood loss - controlled # DVT prop -on sc heparin Vital Signs/Physical Exam: Temp Pulse Resp BP Pulse Ox 98.8 F 63 18 167/74 H 93 03/16/19 10:16 03/16/19 10:16 03/16/19 10:16 03/16/19 10:16 03/16/19 10:16 Laboratory Data at Discharge: WBC 11.6 K/uL (4.3-10.9) H 03/15/19 13:19 Hgb 9.6 g/dL (13.6-17.9) L 03/15/19 13:19 Hct 30.4 % (39.6-49.0) L 03/15/19 13:19 Plt Count 169 K/uL (152-406) 03/15/19 13:19 PT 13.1 SECONDS (9.5-12.5) H 03/13/19 03:39 INR 1.11 03/13/19 03:39 APTT 27.4 SECONDS (24.3-36.9) 03/13/19 03:39 Sodium 140 mmol/L (136-145) 03/16/19 04:22 Potassium 3.9 mmol/L (3.5-5.1) 03/16/19 04:22 BUN 8 mg/dL (7-18) 03/16/19 04:22 Creatinine 0.84 mg/dL (0.55-1.3) 03/16/19 04:22 Glucose 126 mg/dL (74-106) H 03/16/19 04:22 Phosphorus 2.7 mg/dL (2.5-4.9) 03/13/19 03:39 Magnesium 2.3 mg/dL (1.8-2.4) 03/13/19 03:39 Total Bilirubin 1.1 mg/dL (0.2-1.0) H 03/15/19 05:27 AST 15 U/L (15-37) 03/15/19 05:27 ALT 7 U/L (12-78) L 03/15/19 05:27 Alkaline Phosphatase 69 U/L (45-117) 03/15/19 05:27 Home Medications: Rasagiline Mesylate [Azilect] 1 mg PO DAILY 06/14/16 Sitagliptin Phos/Metformin HCl [Janumet 50-1,000 mg Tablet] 1 tab PO BID lisinopriL [Prinivil*] 20 mg PO DAILY #30 tab 06/15/16 Carbidopa/Levodopa [Carbidopa-Levo 25-250 mg Odt] 1 each PO TID 03/12/19 Ezetimibe/Simvastatin [Ezetimibe-Simvastatin 10-10 mg] 1 each PO DAILY 03/12/19 Diet: clear Activity: Ad nate Followup: Santhosh Lemos MD [ASSOCIATE-ACTIVE - CAN ADMIT] - 1 Week Meek Blair MD [ACTIVE - CAN ADMIT] - 1 Week
--- NOTE | 2019-03-16 12:49 | P.PN ---
Subjective Date of Service: 03/16/19 Chief Complaint: ACUTE BLOOD LOSS ANEMIA, FRANK Subjective: Improving (Patient tolerated clears, no pain or other issues currently) Physical Examination - Vital Signs Temperature: 98.8 F Blood Pressure: 167/74 Pulse: 63 Respirations: 18 Pulse Ox (%): 93 - Physical Exam General: Alert, In no apparent distress, Cooperative Gastrointestinal: Soft and benign - Studies Medications List Reviewed: Yes Assessment And Plan - Current Problems (Diagnosis) (1) Mass of colon Current Visit: Yes Status: Acute Plan: - continue cancer workup, await tissue diagnosis - CEA elevated - will continue workup as outpatient, follow up in 1 week - patient agrees to see me in clinic in 1 week - full liquid diet with boost or ensure 4-5 cans per day - return to ER if unable to tolerate diet or bowel trouble Physician Review Additional Text: # GI bleed-resolved -03/15 - s/p atrophic gastritis and new near obstructing sigmoid colon mass on EGD AND COLO -hepatic lesion on CT abdomen noted - h/h stable at 8.7 -still continue q12h h/h -s/p prior PRBC 03/14 - s/p EDG with findings of atrophic gastritis , biopsy specimen obtained -bleeding resolved now -follow plan for colonoscopy this pm - can resume po post procedure -c/w PPI # Colon mass - follow biopsy result -follow surgery consult # HTN -controlled # DM -on insulin # Parkinson disease -c/w sinemet # Anemia of blood loss -improved to 9.4 now , h/h still improving after initial 3 unit PRBC - follow repeat today , if still above 9 , can dc home and follow with GI in 1 week along with surgery if positive biopsy result # DVT prop -on sc heparin # full code
[2019-03-16 13:21] LABS: Absolute Lymphocytes (CBC) 1.3 K/uL (0.7-4.9); Basophils % 0.9 % (0-1.3); Hematocrit 30.9 % (39.6-49.0); Lymphocytes % 9.2 % (15.3-44.8); MPV 9.2 fL (7.6-11.3); RBC Red Blood Cell Count 4.21 M/uL (4.33-5.43)
[2019-03-16 15:18] LABS: Anisocytosis 3+; Blood Morphology Comment NOTED (NOT SEEN); Hypochromasia 2+; Ovalocytes 3+; Platelet Estimate ADEQ; Urine White Blood Cell Casts OK
[2019-03-16] MEDS: MAGNESIUM CITRATE 300 ML BOT PO SCH (18:26)
[2019-03-16] MEDS: GOLYTELY 4000 ML PO SCH (18:26)
--- NOTE | 2019-03-16 20:11 | P.PN ---
Subjective Date of Service: 03/16/19 Chief Complaint: ACUTE BLOOD LOSS ANEMIA, FRANK Subjective: Improving (He feels better, tolerated CLs yesterday. Surgery has seen and evaluated, awaiting colon mass pathology results, told patient he can see as outpatient. Patient willing to stay for barium enema in AM. CEA elevated at 8.8.) Review of Systems 10-point ROS is otherwise unremarkable General: Weakness (improved. ) Physical Examination - Vital Signs Temperature: 97.9 F Blood Pressure: 148/65 Pulse: 56 Respirations: 15 Pulse Ox (%): 95 - Physical Exam General: Alert, In no apparent distress, Oriented x3, Cooperative HEENT: Atraumatic, Normocephalic, PERRLA, EOMI Neck: Supple Respiratory: Normal air movement Cardiovascular: Normal pulses Gastrointestinal: Soft and benign, No tenderness, No rebound, No guarding Neurological: Normal speech - Studies Medications List Reviewed: Yes Assessment And Plan - Current Problems (Diagnosis) (1) Anemia, iron deficiency Current Visit: Yes Status: Acute (2) Mass of colon Current Visit: Yes Status: Acute (3) Parkinson disease Current Visit: Yes Status: Acute (4) CKD (chronic kidney disease) stage 3, GFR 30-59 ml/min Current Visit: No Status: Chronic (5) Diabetes Current Visit: No Status: Chronic Qualifiers: Diabetes mellitus type: type 2 Diabetes mellitus adjunct faculty for medical terminology insulin use: with adjunct faculty for medical terminology use Diabetes mellitus complication status: without complication Qualified Code(s): E11.9 - Type 2 diabetes mellitus without complications; Z79.4 - halfway (current) use of insulin (6) Essential hypertension Current Visit: No Status: Chronic - Plan REC: 1) await pathology 2) surgery outpatient f/u 3) barium enema in AM 4) clear liquid diet Physician Review Additional Text: # GI bleed-resolved -03/15 - s/p atrophic gastritis and new near obstructing sigmoid colon mass on EGD AND COLO -hepatic lesion on CT abdomen noted - h/h stable at 8.7 -still continue q12h h/h -s/p prior PRBC 03/14 - s/p EDG with findings of atrophic gastritis , biopsy specimen obtained -bleeding resolved now -follow plan for colonoscopy this pm - can resume po post procedure -c/w PPI # Colon mass - follow biopsy result -follow surgery consult # HTN -controlled # DM -on insulin # Parkinson disease -c/w sinemet # Anemia of blood loss -improved to 9.4 now , h/h still improving after initial 3 unit PRBC - follow repeat today , if still above 9 , can dc home and follow with GI in 1 week along with surgery if positive biopsy result # DVT prop -on sc heparin # full code
[2019-03-16] MEDS: ATORVASTATIN 10 MG TAB PO SCH (20:31)
[2019-03-17] MEDS: HYDRALAZINE HCL 20 MG/ML VIAL IV PRN ×2 (01:09→08:33)
[2019-03-17 05:23] VITALS: O2SAT 94
[2019-03-17 05:52] LABS: Potassium 3.7 mmol/L (3.5-5.1)
--- NOTE | 2019-03-17 07:56 | P.PN ---
Subjective Date of Service: 03/17/19 Chief Complaint: ACUTE BLOOD LOSS ANEMIA, FRANK Subjective: No new changes (Patient tolerating diet well) Physical Examination - Vital Signs Temperature: 97.1 F Blood Pressure: 173/73 Pulse: 67 Respirations: 18 Pulse Ox (%): 94 - Physical Exam General: Alert, In no apparent distress, Cooperative HEENT: Mucous membr. moist/pink Gastrointestinal: Soft and benign - Studies Medications List Reviewed: Yes Assessment And Plan - Current Problems (Diagnosis) (1) Mass of colon Current Visit: Yes Status: Acute Plan: - continue cancer workup, await tissue diagnosis - CEA elevated - will continue workup as outpatient, follow up in 1 week - patient agrees to see me in clinic in 1 week - full liquid diet with boost or ensure 4-5 cans per day - return to ER if unable to tolerate diet or bowel trouble - barium enema pending Physician Review Additional Text: # GI bleed-resolved -03/15 - s/p atrophic gastritis and new near obstructing sigmoid colon mass on EGD AND COLO -hepatic lesion on CT abdomen noted - h/h stable at 8.7 -still continue q12h h/h -s/p prior PRBC 03/14 - s/p EDG with findings of atrophic gastritis , biopsy specimen obtained -bleeding resolved now -follow plan for colonoscopy this pm - can resume po post procedure -c/w PPI # Colon mass - follow biopsy result -follow surgery consult # HTN -controlled # DM -on insulin # Parkinson disease -c/w sinemet # Anemia of blood loss -improved to 9.4 now , h/h still improving after initial 3 unit PRBC - follow repeat today , if still above 9 , can dc home and follow with GI in 1 week along with surgery if positive biopsy result # DVT prop -on sc heparin # full code
[2019-03-17] MEDS: lisinopriL 20 MG TAB PO SCH (08:29)
[2019-03-17] MEDS: CYANOCOBALAMIN 1,000 MCG TAB SL SCH (08:29)
[2019-03-17] MEDS: CARBIDOPA/LEVODOPA 25/250 TAB PO SCH (08:29)
[2019-03-17] MEDS: SITAGLIPTIN PHOS PO SCH (09:00)
[2019-03-17] MEDS: METFORMIN HCL PO SCH (09:00)
[2019-03-17] MEDS: SOD FERRIC GLUC COMPLX/SUCROSE 250 MG in NA CHLORIDE 0.9% 250 ML IV SCH (09:00)
[2019-03-17] MEDS ORDERED: POTASSIUM 25 MEQ EFFERV TAB PO ONE (09:00)
[2019-03-17] MEDS: RASAGILINE MESYLATE 1 MG PO SCH (09:00)
--- NOTE | 2019-03-17 11:47 | P.PN ---
Subjective Date of Service: 03/17/19 Chief Complaint: ACUTE BLOOD LOSS ANEMIA, FRANK seen , unable to go home yesterday due to barium enema need -feels fine today Physical Examination - Vital Signs Temperature: 98.8 F Blood Pressure: 183/70 Pulse: 62 Respirations: 18 Pulse Ox (%): 95 - Physical Exam General: Alert, In no apparent distress, Oriented x3 Respiratory: Clear to auscultation bilaterally, Normal air movement Cardiovascular: Normal pulses, Regular rate/rhythm Neurological: Normal gait, Normal speech - Studies Laboratory Last Values WBC 13.8 K/uL (4.3-10.9) H D 03/16/19 13:07 RBC 4.21 M/uL (4.33-5.43) L 03/16/19 13:07 Hgb 9.8 g/dL (13.6-17.9) L 03/16/19 13:07 Hct 30.9 % (39.6-49.0) L 03/16/19 13:07 MCV 73.4 fL (80-100) L 03/16/19 13:07 MCH 23.4 pg (27.0-35.0) L 03/16/19 13:07 MCHC 31.8 g/dL (32.0-36.0) L 03/16/19 13:07 RDW 30.6 % (12.1-15.2) H 03/16/19 13:07 Plt Count 169 K/uL (152-406) 03/16/19 13:07 MPV 9.2 fL (7.6-11.3) 03/16/19 13:07 Neutrophils % 80.3 % (41.7-73.7) H 03/16/19 13:07 Lymphocytes % 9.2 % (15.3-44.8) L 03/16/19 13:07 Monocytes % 6.6 % (3.3-12.3) 03/16/19 13:07 Eosinophils % 3.0 % (0-4.4) 03/16/19 13:07 Basophils % 0.9 % (0-1.3) 03/16/19 13:07 Absolute Neutrophils 11.1 K/uL (1.8-8.0) H 03/16/19 13:07 Absolute Lymphocytes 1.3 K/uL (0.7-4.9) 03/16/19 13:07 Absolute Monocytes 0.9 K/uL (0.1-1.3) 03/16/19 13:07 Absolute Eosinophils 0.4 K/uL (0-0.5) 03/16/19 13:07 Absolute Basophils 0.1 K/uL (0-0.5) 03/16/19 13:07 Hypochromasia 2+ 03/16/19 13:07 Anisocytosis 3+ 03/16/19 13:07 Microcytosis 1+ 03/14/19 13:32 Tear Drop Cells 1+ 03/14/19 13:32 Ovalocytes 3+ 03/16/19 13:07 Schistocytes 2+ 03/16/19 13:07 Morphology Comment Noted (NOT SEEN) 03/16/19 13:07 Absolute Retic 0.09 M/uL (0.02-0.11) 03/13/19 03:39 Percent Retic 2.39 % (0.4-2.05) H 03/13/19 03:39 PT 13.1 SECONDS (9.5-12.5) H 03/13/19 03:39 INR 1.11 03/13/19 03:39 APTT 27.4 SECONDS (24.3-36.9) 03/13/19 03:39 Sodium 141 mmol/L (136-145) 03/17/19 05:12 Potassium 3.7 mmol/L (3.5-5.1) 03/17/19 05:12 Chloride 109 mmol/L (98-107) H 03/17/19 05:12 Carbon Dioxide 25 mmol/L (21-32) 03/17/19 05:12 BUN 6 mg/dL (7-18) L 03/17/19 05:12 Creatinine 0.88 mg/dL (0.55-1.3) 03/17/19 05:12 Estimated GFR 86 mL/min (=/>90) L 03/17/19 05:12 Glucose 118 mg/dL (74-106) H 03/17/19 05:12 POC Glucose 128 mg/dl (65-120) H 03/17/19 07:58 Calcium 8.6 mg/dL (8.5-10.1) 03/17/19 05:12 Phosphorus 2.7 mg/dL (2.5-4.9) 03/13/19 03:39 Magnesium 2.3 mg/dL (1.8-2.4) 03/13/19 03:39 Iron 16.0 ug/dL (65-175) L 03/13/19 03:39 TIBC 392 ug/dL (250-460) 03/13/19 03:39 Transferrin 280 mg/dL (200-360) 03/13/19 03:39 Transferrin % Sat 4.1 % (20.0-50.0) L 03/13/19 03:39 Ferritin 4.4 ng/mL (26-388) L 03/13/19 03:39 Total Bilirubin 1.1 mg/dL (0.2-1.0) H 03/15/19 05:27 Direct Bilirubin 0.1 mg/dL (0-0.2) 03/11/19 23:10 AST 15 U/L (15-37) 03/15/19 05:27 ALT 7 U/L (12-78) L 03/15/19 05:27 Alkaline Phosphatase 69 U/L (45-117) 03/15/19 05:27 Lactate Dehydrogenase 154 U/L (87-241) 03/13/19 03:39 Rapid Troponin I < 0.02 ng/mL (0.0-0.045) 03/11/19 23:10 NT-Pro-B Natriuret Pep 614 pg/mL (<125) H 03/13/19 03:39 Serum Total Protein 6.0 g/dL (6.4-8.2) L 03/15/19 05:27 Albumin 2.9 g/dL (3.4-5.0) L 03/15/19 05:27 Globulin 3.1 g/dL (2.3-3.5) 03/15/19 05:27 Albumin/Globulin Ratio 0.9 (1.1-1.8) L 03/15/19 05:27 Carcinoembryonic Ag 8.8 ng/mL (0-5.0) H 03/15/19 05:27 Vitamin B12 238 pg/mL (193-986) 03/13/19 03:39 Serum Folate 11.7 ng/mL (3.1-17.5) 03/13/19 03:39 Urine Color Yellow 03/12/19 06:57 Urine Appearance Clear 03/12/19 06:57 Urine pH 5.5 (5.0-7.0) 03/12/19 06:57 Ur Specific [place] 1.015 (1.005-1.030) 03/12/19 06:57 Urine Ketones Negative (NEG) 03/12/19 06:57 Urine Blood Negative (NEG) 03/12/19 06:57 Urine Nitrite Negative (NEG) 03/12/19 06:57 Urine Bilirubin Negative (NEG) 03/12/19 06:57 Urine Urobilinogen 1.0 mg/dL (0.2-1.0) 03/12/19 06:57 Ur Leukocyte Esterase Trace (NEG) H 03/12/19 06:57 Urine RBC <5 /HPF (NONE SEEN) 03/12/19 06:57 Urine WBC 5-10 /HPF (<5) H 03/12/19 06:57 Ur Squamous Epith Cells <5 /HPF (NONE SEEN) 03/12/19 06:57 Urine Bacteria <20 /HPF (NONE SEEN) 03/12/19 06:57 Urine Mucus Slight /HPF (NONE SEEN) 03/12/19 06:57 Urine Culture Reflexed Reflexed 03/12/19 06:57 Urine Glucose Negative (NEG) 03/12/19 06:57 Urine Total Protein Negative (NEG) 03/12/19 06:57 ABO/Rh O POSITIVE 03/12/19 00:26 Antibody Screen Negative 03/12/19 00:10 Crossmatch See Detail 03/13/19 Unknown Medications List Reviewed: Yes Assessment & Plan - Problems (Diagnosis) (1) Parkinson disease Current Visit: Yes Status: Acute (2) Acute blood loss anemia Current Visit: Yes Status: Acute (3) CKD (chronic kidney disease) stage 3, GFR 30-59 ml/min Current Visit: No Status: Chronic (4) Diabetes Current Visit: No Status: Chronic Qualifiers: Diabetes mellitus type: type 2 Diabetes mellitus group home insulin use: with group home use Diabetes mellitus complication status: without complication Qualified Code(s): E11.9 - Type 2 diabetes mellitus without complications; 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
--- NOTE | 2019-03-17 11:50 | P.DS ---
Admission Date: 03/12/19 Discharge Date: 03/17/19 Disposition: DC HOME/HOME HEALTH CARE Discharge Condition: FAIR Reason for Admission: ACUTE BLOOD LOSS ANEMIA, FRANK - Problems (1) Parkinson disease Current Visit: Yes Status: Acute (2) Acute blood loss anemia Current Visit: Yes Status: Acute (3) CKD (chronic kidney disease) stage 3, GFR 30-59 ml/min Current Visit: No Status: Chronic (4) Diabetes Current Visit: No Status: Chronic Qualifiers: Diabetes mellitus type: type 2 Diabetes mellitus long term care social worker insulin use: with mcfp use Diabetes mellitus complication status: without complication Qualified Code(s): E11.9 - Type 2 diabetes mellitus without complications; Z79.4 - shelter (current) use of insulin (5) Essential hypertension Current Visit: No Status: Chronic (6) Mass of colon Current Visit: Yes Status: Acute (7) Atrophic gastritis with hemorrhage Current Visit: Yes Status: Acute Brief History of Present Illness: # patient admitted for pale appearance and noted with h/h of 3.4 Hospital Course: GI bleed-resolved -s/p EGD with findings of atrophic gastritis and new near obstructing sigmoid colon mass on EGD AND COLO -hepatic lesion on CT abdomen noted . His hemoglobin improved with 3 unit PRBC from 3.5 to 8.8 and continue to spontaneously rise to 9.4 now . He was evaluated by surgery also . lesion in liver was felt to be due to possible metastases. His biopsy of his sigmoid mass is pending as well as CEA levels . he will follow with GI in 1 week for results -His aspirin and plavix were both held - He had a barium enema done prior to discharge . to follow with surgery as outpt in1 week -Dr Blair -continue on soft diet and clear diet for now at home # HTN -controlled , c/w home meds # DM -c/w home regime # Parkinson disease -c/w Sinemet # Anemia of blood loss - controlled , s/p 3 unit PRBC , h/h improved to 9.8 -s/p IV iron infusion given Vital Signs/Physical Exam: Temp Pulse Resp BP Pulse Ox 98.8 F 62 18 183/70 H 95 03/17/19 11:47 03/17/19 11:47 03/17/19 11:47 03/17/19 11:47 03/17/19 11:47 General: Alert, In no apparent distress, Oriented x3 HEENT: Atraumatic, Normocephalic Neck: Supple, 2+ carotid pulse no bruit, JVD not distended Respiratory: Clear to auscultation bilaterally, Normal air movement Cardiovascular: Regular rate/rhythm, Normal S1 S2 Gastrointestinal: Normal bowel sounds, Soft and benign Musculoskeletal: No clubbing, No swelling Neurological: Normal gait, Normal speech, Other (tremors ) Laboratory Data at Discharge: WBC 13.8 K/uL (4.3-10.9) H D 03/16/19 13:07 Hgb 9.8 g/dL (13.6-17.9) L 03/16/19 13:07 Hct 30.9 % (39.6-49.0) L 03/16/19 13:07 Plt Count 169 K/uL (152-406) 03/16/19 13:07 PT 13.1 SECONDS (9.5-12.5) H 03/13/19 03:39 INR 1.11 03/13/19 03:39 APTT 27.4 SECONDS (24.3-36.9) 03/13/19 03:39 Sodium 141 mmol/L (136-145) 03/17/19 05:12 Potassium 3.7 mmol/L (3.5-5.1) 03/17/19 05:12 BUN 6 mg/dL (7-18) L 03/17/19 05:12 Creatinine 0.88 mg/dL (0.55-1.3) 03/17/19 05:12 Glucose 118 mg/dL (74-106) H 03/17/19 05:12 Phosphorus 2.7 mg/dL (2.5-4.9) 03/13/19 03:39 Magnesium 2.3 mg/dL (1.8-2.4) 03/13/19 03:39 Total Bilirubin 1.1 mg/dL (0.2-1.0) H 03/15/19 05:27 AST 15 U/L (15-37) 03/15/19 05:27 ALT 7 U/L (12-78) L 03/15/19 05:27 Alkaline Phosphatase 69 U/L (45-117) 03/15/19 05:27 Home Medications: Rasagiline Mesylate [Azilect] 1 mg PO DAILY 06/14/16 Sitagliptin Phos/Metformin HCl [Janumet 50-1,000 mg Tablet] 1 tab PO BID lisinopriL [Prinivil*] 20 mg PO DAILY #30 tab 06/15/16 Carbidopa/Levodopa [Carbidopa-Levo 25-250 mg Odt] 1 each PO TID 03/12/19 Ezetimibe/Simvastatin [Ezetimibe-Simvastatin 10-10 mg] 1 each PO DAILY 03/12/19 Diet: clear Activity: Ad nate Followup: Meek Blair MD [ACTIVE - CAN ADMIT] - 1 Week Santhosh Lemos MD [ASSOCIATE-ACTIVE - CAN ADMIT] - 1 Week Physician Review: Patient Assessed, Agree with Above Assessment and Plan Time spent managing pt's care (in minutes): 35
--- NOTE | 2019-03-17 13:24 | RAD REPORT ---
EXAM DESCRIPTION: RAD - Colon Barium Enema - 03/17/2019 12:17 pm CLINICAL HISTORY: Sigmoid mass COMPARISON: None FINDINGS: Single contrast barium enema performed. Contrast refluxed into the terminal ileum. An approximately 4.5 centimeter apple-core lesion is present within the sigmoid colon resulting in ma rked narrowing of the lumen. No additional permanent filling defects, obstructing or constricting lesions noted Moderate left-sided diverticulosis Twenty-one Fluoroscopic spot images obtained. Fluoroscopy time 2.6 minutes IMPRESSION: 4.5 centimeter sigmoid mass consistent with neoplasm
[2019-03-17 14:02] VITALS: BP 138/77; TEMP 97.6
== END 2019-03-17 14:22 | disposition home or self-care (01) | DRG 393 ==
LOC: ER 22:24 → ERHOLD 03-12 03:48 → 2ND 03-12 07:33 → OBSVTOIN 03-12 13:35
PROVIDERS: ADMIT Hospitalist; ATTEND Internal Medicine
PROC: 30233N1 Transfusion of Nonautologous Red Blood Cells into Peripheral Vein, Percutaneous Approach (ICD-10-PCS; 2019-03-12)
PROC: 30233N1 Transfusion of Nonautologous Red Blood Cells into Peripheral Vein, Percutaneous Approach (ICD-10-PCS; 2019-03-12)
PROC: 0DB68ZX Excision of Stomach, Via Natural or Artificial Opening Endoscopic, Diagnostic (ICD-10-PCS; 2019-03-13)
PROC: 0DB88ZX Excision of Small Intestine, Via Natural or Artificial Opening Endoscopic, Diagnostic (ICD-10-PCS; 2019-03-13)
PROC: 0DBM8ZX Excision of Descending Colon, Via Natural or Artificial Opening Endoscopic, Diagnostic (ICD-10-PCS; principal; 2019-03-14 16:15)
DX: K63.89 Other specified diseases of intestine (principal); K29.41 Chronic atrophic gastritis with bleeding; D62 Acute posthemorrhagic anemia; E11.22 Type 2 diabetes mellitus with diabetic chronic kidney disease; G20 Parkinson's disease; R16.0 Hepatomegaly, not elsewhere classified; N18.3 Chronic kidney disease, stage 3 (moderate); I12.9 Hypertensive chronic kidney disease with stage 1 through stage 4 chronic kidney disease, or unspecified chronic kidney disease; E78.5 Hyperlipidemia, unspecified; K64.8 Other hemorrhoids; K63.5 Polyp of colon; D50.9 Iron deficiency anemia, unspecified; Z86.73 Personal history of transient ischemic attack (TIA), and cerebral infarction without residual deficits; Z79.4 Long term (current) use of insulin
CPT/HCPCS: 36415; 36430; 71045; 74177; 74270; 76700; 80048; 80053; 80076; 81003; 81015; 82105; 82378; 82607; 82728; 82746; 82947; 83540; 83615; 83735; 83880; 84100; 84466; 84484; 85014; 85018; 85025; 85044; 85610; 85730; 86850; 86900; 86901; 87086; 87088; 88305; 88312; 93005; 94640; 99285; C9113; G0378; J0360; J1200; J1720; J1940; J2405; J2704; J2765; J2916; J3420; J7030; J7040; P9016; Q9967

== ENCOUNTER 2019-07-02 08:06 | Day surgery (SDC) | payer OTHER ==
[2019-06-30 15:20] LABS: Absolute Lymphocytes (CBC) 1.9 K/uL (0.7-4.9); Basophils % 0.6 % (0-1.3); Hematocrit 42.1 % (39.6-49.0); Lymphocytes % 17.4 % (15.3-44.8); MPV 10.9 fL (7.6-11.3); RBC Red Blood Cell Count 4.77 M/uL (4.33-5.43)
--- OUTSIDE RECORDS SUMMARY | 2019-07-02 08:10 | XMS REPORT ---
:1950 [facility] Address [address] [place] [address] Dr. Mccurdy [address] [place] [id number] Care Team Providers Name Role Phone Unavailable Unavailable Unavailable Problems This patient has no known problems. Allergies, Adverse Reactions, Alerts This patient has no known allergies or adverse reactions. Medications This patient has no known medications.
[2019-07-02] MEDS ORDERED: NA CHLORIDE 0.9% 1,000 ML ONE (08:14)
[2019-07-02] MEDS ORDERED: CEFAZOLIN/SWI 1gm 1 GM/10 ML SYR ONE (08:15)
[2019-07-02] MEDS ORDERED: NS 0.9% VIAL 20 ML ONE (08:20)
[2019-07-02] MEDS ORDERED: LIDOCAINE 1% 20 ML MDV ONE (08:21)
[2019-07-02] MEDS ORDERED: HEPARIN 5000 UNIT/ML 1 ML VIAL ONE (08:21)
[2019-07-02] MEDS ORDERED: FENTANYL CITR 100 MCG/2 ML ONE (08:50)
[2019-07-02] MEDS ORDERED: MIDAZOLAM HCL 2 MG/2 ML INJ ONE (08:50)
[2019-07-02] MEDS ORDERED: propofoL 200 MG/20 ML VIAL IV ONE (08:50)
[2019-07-02] MEDS ORDERED: LIDOCAINE 1% MPF 5 ML VIAL ONE (08:50)
--- NOTE | 2019-07-02 10:15 | OP ---
Date of Procedure: 07/02/2019 Surgeon: Anton Macias MD Preoperative Diagnosis: Colon cancer. Postoperative Diagnosis: Colon cancer. Procedure: Right internal jugular Port-A-Cath placement and interpretation with intraoperative fluor oscopy. Estimated Blood Loss: Minimal. Specimen: None. Findings: Normal anatomy. Anesthesia: MAC. Complications: None. Disposition: Patient tolerated the procedure in stable condition, taken to Recovery in good general condition. Operative Note: Patient was brought to the OR and placed in supine position. MAC anesthesia was beg un. The patient was prepped and draped in usual sterile fashion. Lidocaine 1% infiltrated locally. An 18-gauge needle was used to access the right IJ vein. Guidewire was passed. Position confirmed with fluoroscopy. A 3 cm counterincision on the right anterior chest made. Pocket created. Tunneli ng device used to tunnel the catheter between the 2 wounds. Seldinger technique used. Tip of the ca theter placed in the SVC under fluoroscopy. Cut to appropriate size. Attached to the Port-A-Cath de vice. Port-A-Cath device was attached with 3-0 Vicryl to the subcutaneous tissue and 3-0 chromic use d to approximate subcutaneous tissue and close the skin. Sterile dressing was applied. Patient had the catheter port flushed with heparin and packed with heparin with good blood flow. Patient was naa kened and taken to Recovery in good general condition. Chest x-ray has been ordered. If okay, the p atient will be discharged to home. Disposition: Home. Condition: Stable. Discharge Instructions: Resume home medications and diet. Activity as tolerated. No heavy lifting. Remove outer dressing in 2 days. Shower. Keep wound clean and dry. Keep Steri-Strips on at all t imes. [facility]. Tylenol No. 3 one tablet p.o. q.4 p.r.n. pain. /MODL Voice ID: [id number] Report ID: [id number]
--- NOTE | 2019-07-02 10:24 | RAD REPORT ---
EXAM DESCRIPTION: RAD - Fluoroscopy <1 Hour - 07/02/2019 9:49 am CLINICAL HISTORY: Device placement central venous catheter placement FINDINGS: A central venous catheter was placed into the superior vena cava. Six fluoroscopic spot im ages are submitted. The examination was performed by Dr. Macias Fluoroscopy time 0.4 minutes
--- NOTE | 2019-07-02 10:24 | RAD REPORT ---
EXAM DESCRIPTION: Tadeo Single View07/02/2019 10:08 am CLINICAL HISTORY: Device placement/central venous catheter placement IMPRESSION: Central venous catheter with its tip in the mid superior vena cava No pneumothorax
[2019-07-02 10:27] VITALS: TEMP 97.4
[2019-07-02] MEDS ORDERED: HYDROCODONE/APAP 7.5/325 MG TAB ONE (11:24)
[2019-07-02 11:30] VITALS: BP 134/50; O2SAT 98
== END 2019-07-02 12:05 | disposition home or self-care (01) ==
LOC: OR 08:06
PROVIDERS: ATTEND Surgery
PROC: 0JH60WZ Insertion of Totally Implantable Vascular Access Device into Chest Subcutaneous Tissue and Fascia, Open Approach (ICD-10-PCS; principal; 2019-07-02 09:30)
DX: C18.9 Malignant neoplasm of colon, unspecified (principal); E11.9 Type 2 diabetes mellitus without complications; I10 Essential (primary) hypertension; G20 Parkinson's disease; I69.90 Unspecified sequelae of unspecified cerebrovascular disease; Z91.013 Allergy to seafood
CPT/HCPCS: 85025; 36415; 82947; 71045; 36561; J2704; J1644 ×2; J2250; J3010; J0690; J7030; C1788; 76000

== ENCOUNTER 2024-02-03 10:10 | Emergency (ER) | payer OTHER ==
--- NOTE | 2024-02-03 10:59 | RAD REPORT ---
EXAM: CT brain without contrast HISTORY: TRAUMA COMPARISON: None TECHNIQUE: Multiple contiguous axial images were obtained and a CT of the brain without contrast. Sag ittal and coronal reformats were performed. One or more of the following dose reduction techniques were used: Automated exposure control, adjust ment of the mA and/or kV according to patient size, and/or iterative reconstruction. FINDINGS: No evidence of hydrocephalus, intracranial hemorrhage, or extra-axial fluid collection. Moderate brain atrophy with moderate periventricular and deep white matter chronic microvascular isc hemic changes present. Gliosis in the left posterior watershed zone suggests old infarction. The calvarium is intact. The visualized paranasal sinuses and mastoid air cells are essentially clear . Small right-sided scalp hematoma. IMPRESSION: No evidence of acute intracranial abnormality. EXAM: CT of the cervical spine without contrast HISTORY: Neck pain, injury TRAUMA TECHNIQUE: Multiple contiguous axial images were obtained in a CT of the cervical spine without contr ast. Sagittal and coronal reformats were performed. FINDINGS: The vertebral bodies demonstrate normal height and alignment. No evidence of acute fracture or subluxation.. Mild lower cervical degenerative changes. Mild levoscoliosis. No prevertebral soft tissue swelling is seen. Carotid atherosclerosis. Left-sided carotid stent. The posterior facets are well aligned. Normal alignment of the skull base with the cervical spine is seen. The lung apices are unremarkable. IMPRESSION: No evidence of acute osseous abnormality of the cervical spine.
--- NOTE | 2024-02-03 11:09 | ER ---
Nurse's Notes [facility] Name: Joey Pringle Age: 73 yrs Sex: Male : 1950 Arrival Date: 02/03/2024 Time: 10:10 Bed 18 Private MD: Diagnosis: Scalp Hematoma Presentation: 02/02 10:22 Chief complaint: EMS states: patient was being assisted to the restroom when he fell ap3 and hit the right side of his head on the commode. it is reported there is no LOC and the patient denies being on blood thinners. Coronavirus screen: At this time, the client does not indicate any symptoms associated with coronavirus-19. Ebola Screen: No symptoms or risks identified at this time. Initial Sepsis Screen: Does the patient meet any 2 criteria? No. Patient's initial sepsis screen is negative. Does the patient have a suspected source of infection? No. Patient's initial sepsis screen is negative. Risk Assessment: Do you want to hurt yourself or someone else? Patient reports no desire to harm self or others. Onset of symptoms was February 03, 2024. Mechanism of Injury: Fall from standing position. Transition of care: patient was not received from another setting of care. 10:22 Method Of Arrival: [facility] ap3 10:22 Acuity: BELKYS 3 ap3 Triage Assessment: 10:26 General: Appears in no apparent distress. Behavior is calm, cooperative, appropriate ap3 for age. Pain: Complains of pain in right congregational and right temporal area Pain began suddenly. Neuro: Level of Consciousness is awake, alert, obeys commands, Oriented to person, place, time, situation, Appropriate for age. Neuro: patient has tremors from hx of parkinsons. Cardiovascular: Patient's skin is warm and dry. Respiratory: Airway is patent Respiratory effort is even, unlabored, Respiratory pattern is regular, symmetrical. Derm: swelling to right temporal area. Historical: - Allergies: 10:25 Iodine; ap3 10:25 SEAFOOD; ap3 - PMHx: 10:25 CVA; Diabetes - IDDM; Hypertension; Parkinsons; colon cancer (Parkinsons); ap3 - Immunization history:: Adult Immunizations up to date. - Infectious Disease History:: Denies. - Social history:: Smoking status: unknown. Screenin: [facility] ED Fall Risk Assessment (Adult) History of falling in the last 3 months, ap3 including since admission Yes- fall prone (multiple falls) (3 pts) Confusion or Disorientation No (0 pts) Intoxicated or Sedated No (0 pts) Impaired Gait Yes (1 pt) Mobility Assist Device Used Yes (1 pt) Altered Elimination No (0 pt) Score/Fall Risk Level 3 or more points = High Risk Oriented to surroundings, Maintained a safe environment, Educated pt \T\ family on fall prevention, incl call for assistance when getting out of bed, Assessed \T\ reinforced patient's understanding of fall precautions, Provided non-skid footwear, Hourly rounding (assess needs \T\ fall precautionary measures) done, Used ambulatory aids as needed (educated on \T\ assisted with), Used gait belt as appropriate Implemented a Fall Risk Plan of Care, Remained w/in arm's length of patient and in sight while toileting, Offered frequent toileting (1:1 observation), Remained with patient while ambulating, Utilized family, sitter, or virtual nuclear monitoring technician as indicated. Abuse screen: Denies threats or abuse. Nutritional screening: No deficits noted. Tuberculosis screening: No symptoms or risk factors identified. Vital Signs: 10:22 Pulse 84; Resp 19; Weight 65.77 kg; ap3 10:29 BP 135 / 84; Pulse 86; Resp 19; Pulse Ox 97% on R/A; ap3 ED Course: 10:13 Patient arrived in ED. [facility] 10:13 Louisa Montana FNP [facility] 10:13 Al Esposito MD is Attending Physician. [facility] 10:22 Shelly Patterson, DILLON is Primary Nurse. ap3 10:25 Triage completed. ap3 10:27 Patient has correct armband on for positive identification. Bed in low position. Call ap3 light in reach. Side rails up X2. Provided Education on: call light education. Client placed on continuous cardiac and pulse oximetry monitoring. NIBP monitoring applied. threat monitoring analyst on. Pulse ox on. 10:28 Arm band placed on right wrist. ap3 10:51 CT Head C Spine In Process Unspecified. EDMS 11:24 No provider procedures requiring assistance completed. Patient did not have IV access ap3 during this emergency room visit. Administered Medications: No medications were administered Medication: 11:25 VIS not applicable for this client. ap3 Outcome: 11:09 Discharge ordered by MD. nicole 11:24 Discharged to home via wheelchair, with family, ap3 11:24 Condition: good 11:24 Discharge instructions given to patient, family, Instructed on discharge instructions, follow up and referral plans. Demonstrated understanding of instructions, follow-up care, 11:33 Patient left the ED. ap3 Signatures: Dispatcher [employer] Shelly Elizalde RN RN ap3 Louisa Montana FNP FNP 7
--- NOTE | 2024-02-03 11:10 | EDPHYS ---
Physician Documentation [facility] Name: Joey Pringle Age: 73 yrs Sex: Male : 1950 Arrival Date: 02/03/2024 Time: 10:10 Bed 18 Private MD: ED Physician Al Esposito HPI: 02/02 10:13 This 73 yrs old Male presents to ER via Unassigned with complaints of Fall jh7 Injury. 10:13 Details of fall: The patient fell from seated position, while transferring. Onset: The jh7 symptoms/episode began/occurred acutely. Associated injuries: The patient sustained injury to the head, hematoma. 73-year-old male with a past medical history of Parkinson's, colon cancer on hospice, dementia, diabetes, and hypertension presents to the ER post fall. The patient states that he is supposed to ask for assistance when transferring on/off the toilet and at this time he did not. When attempting to get up from the toilet, the patient slipped and hit his head on the side of the toilet. The fall was witnessed. He denies LOC or being on blood thinners. Patient alert and oriented at this time, complains of a hematoma to the scalp.. Historical: - Allergies: 10:25 Iodine; ap3 10:25 SEAFOOD; ap3 - PMHx: 10:25 CVA; Diabetes - IDDM; Hypertension; Parkinsons; colon cancer (Parkinsons); ap3 - Immunization history:: Adult Immunizations up to date. - Infectious Disease History:: Denies. - Social history:: Smoking status: unknown. ROS: 10:13 Constitutional: Per HPI jh7 Exam: 10:13 Constitutional: This is a well developed, well nourished patient who is awake, alert, jh7 and in no acute distress. Eyes: Pupils equal round and reactive to light, extra-ocular motions intact. Lids and lashes normal. Conjunctiva and sclera are non-icteric and not injected. Cornea within normal limits. Periorbital areas with no swelling, redness, or edema. Neck: Trachea midline, no thyromegaly or masses palpated, and no cervical lymphadenopathy. Supple, full range of motion without nuchal rigidity, or vertebral point tenderness. No Meningismus. Cardiovascular: Regular rate and rhythm with a normal S1 and S2. No gallops, murmurs, or rubs. Normal PMI, no JVD. No pulse deficits. Respiratory: Lungs have equal breath sounds bilaterally, clear to auscultation and percussion. No rales, rhonchi or wheezes noted. No increased work of breathing, no retractions or nasal flaring. Abdomen/GI: Soft, non-tender, with normal bowel sounds. No distension or tympany. No guarding or rebound. No evidence of tenderness throughout. Back: No spinal tenderness. No costovertebral tenderness. Full range of motion. Skin: Warm, dry with normal turgor. Normal color with no rashes, no lesions, and no evidence of cellulitis. MS/ Extremity: Pulses equal, no cyanosis. Neurovascular intact. Full, normal range of motion. Neuro: Awake and alert, GCS 15, oriented to person, place, time, and situation. Motor strength 5/5 in all extremities. Sensory grossly intact. Normal gait. 10:13 Head/face: Noted is hematoma, that is moderate, of the right frontal area, Vital Signs: 10:22 Pulse 84; Resp 19; Weight 65.77 kg; ap3 10:29 BP 135 / 84; Pulse 86; Resp 19; Pulse Ox 97% on R/A; ap3 MDM: 10:13 Medical Screening Exam initiated [facility] 11:12 Differential diagnosis: abrasion, closed head injury, contusion, fracture, Intracranial jh7 hemorrhage, skull fracture, scalp hematoma. Data reviewed: vital signs, nurses notes, radiologic studies, CT scan. Independent interpretation of the following test(s) in the Emergency Department CT Scan: My interpretation is No intracranial bleeding noted. Historians other than the Patient: EMS: EMS. Care significantly affected by the following chronic conditions: Diabetes, Hypertension. Counseling: I had a detailed discussion with the patient and/or guardian regarding the historical points, exam findings, and any diagnostic results supporting the discharge/admit diagnosis, to return to the emergency department if symptoms worsen or persist or if there are any questions or concerns that arise at home. 02/02 10:13 Order name: CT Head C Spine; Complete Time: 11:08 jh7 Administered Medications: No medications were administered Disposition Summary: 02/03/24 11:09 Discharge Ordered Notes: Location: Home [facility] Problem: new [facility] Symptoms: are unchanged [facility] Condition: Stable jh7 Diagnosis - Scalp Hematoma [facility] Followup: [facility] - With: Private Physician - When: 2 - 3 days - Reason: Recheck today's complaints Discharge Instructions: - Discharge Summary Sheet [facility] - Facial or Scalp Contusion [facility] - Hematoma [facility] Forms: - Medication Reconciliation Form [facility] - Patient Portal Instructions [facility] - Leadership Thank You Letter [facility] Signatures: Dispatcher [employer] Shelly Elizalde RN RN ap3 Louisa Montana FNP FNP [facility]
[2024-02-03 17:19] VITALS: BP 135/84; O2SAT 97
== END 2024-02-03 11:33 | disposition home or self-care (01) ==
LOC: ER 10:10
DX: S00.03XA Contusion of scalp, initial encounter (principal); W18.12XA Fall from or off toilet with subsequent striking against object, initial encounter; E11.9 Type 2 diabetes mellitus without complications; I10 Essential (primary) hypertension; G20.A1 Parkinson's disease without dyskinesia, without mention of fluctuations; F02.80 Dementia in other diseases classified elsewhere, unspecified severity, without behavioral disturbance, psychotic disturbance, mood disturbance, and anxiety; C18.9 Malignant neoplasm of colon, unspecified; Z86.73 Personal history of transient ischemic attack (TIA), and cerebral infarction without residual deficits
CPT/HCPCS: 70450; 72125; 99284